=== PATIENT | male | born 1970 | race Caucasian/White ===

== ENCOUNTER → 2019-11-21 | Outpatient (CLI) | payer OTHER ==
[~2019-11-21] MED LIST: CATHETER FLUSH 10 ML SYR IV PRN; DARVOCET; EPIN0.3P2 IM; FEXO180T PO; MNTL10T; MOTRIM; MULT-608 PO; WRF5T; [UNRECOGNIZED DRUG - OTHER]
--- NOTE | 2019-11-21 13:35 | Diagnostic Imaging Report ---
Indication: Right upper quadrant pain. Patient was injected with 5 mCi Tc 99 Choletec intravenously. After 60 minutes of imaging, the patient ingested Ensure for the purpose of quantifying gallbladder ejection fraction. There is prompt homogenous distribution of the radiopharmacy throughout the liver parenchyma, activity first seen in the gallbladder within 5 minutes time and within 20 minutes was spilling into the extrahepatic ducts and subsequently into the proximal small bowel. With gallbladder Ensure stimulation, the gallbladder ejection fraction of 42% was within normal limits for that modality of stimulation. Impression: Normal nuclear medicine hepatobiliary scan and fatty meal gallbladder stimulation. Dictated by: Dictated on workstation # [id number]
== END ==
LOC: CARD 12:45
PROVIDERS: ATTEND Surgery
DX: R10.11 Right upper quadrant pain (principal)
CPT/HCPCS: 78227; A9537

== ENCOUNTER 2019-12-05 05:36 | Outpatient (RCR) | payer OTHER ==
[~2019-12-05] VITALS: Ht 190 cm; Wt 107.2 kg
[~2019-12-05 05:36] MED LIST changes: -CATHETER FLUSH 10 ML SYR IV PRN; +MONT10TA21 PO
== END 2019-12-05 14:45 | disposition home or self-care (01) ==
LOC: PREOP 05:36
PROVIDERS: ATTEND Surgery
DX: Z01.812 Encounter for preprocedural laboratory examination (principal); Z20.828 Contact with and (suspected) exposure to other viral communicable diseases
CPT/HCPCS: 87635

== ENCOUNTER 2019-12-07 07:30 | Day surgery (SDC) | payer OTHER ==
[~2019-12-07] VITALS: Ht 190 cm; Wt 107.2 kg
[2019-12-07] VITALS (10 sets, daily range): BP systolic 133–162; BP diastolic 76–97
[2019-12-07] MEDS: LACTATED RINGERS 1,000 ML IV PRN ×2 (07:56→10:09)
[2019-12-07] MEDS ORDERED: fentaNYL INJECTION 100 MCG/2 ML AMP ONE ×2 (07:57→10:24)
[2019-12-07] MEDS ORDERED: ONDANSETRON 4 MG/2 ML (SDV) Z0FRAN ONE ×2 (07:57→10:20)
[2019-12-07] MEDS ORDERED: MIDAZOLAM 2 MG/2 ML (VERSED) VIAL ONE (07:57)
[2019-12-07] MEDS ORDERED: LIDOCAINE PF 2% 5 ML (XYLOCAINE) VIAL ONE (07:57)
[2019-12-07] MEDS ORDERED: SEVOFLURANE (ULTANE) 15 ML INHAL SOLN ONE ×4 (07:57→09:50)
[2019-12-07] MEDS ORDERED: proPOfol 200 MG/20 ML (DIPRIVAN) VIAL IV ONE (07:57)
[2019-12-07] MEDS ORDERED: CLINDAMYCIN 600 MG/50 ML IVPB 50 ML IV ONE (08:00)
[2019-12-07] MEDS ORDERED: ceFAZolin 2 GM IV Premixed 50 ML IV ONE (08:00)
[2019-12-07 08:15] LABS: BASOPHILS % (AUTO) 0 % (0-10); EOSINOPHILS # (AUTO) 0.1 10^3/uL (0.0-0.3); EOSINOPHILS % (AUTO) 2 % (0-10); HEMATOCRIT 45 % (40-54); HEMOGLOBIN 15.4 g/dL (13.3-17.7); LYMPHOCYTES # (AUTO) 1.6 10^3/uL (1.0-4.0); LYMPHOCYTES % (AUTO) 32 % (12-44); MEAN CORPUSCULAR HEMOGLOBIN 30 pg (25-34); MEAN CORPUSCULAR HGB CONC 34 g/dL (32-36); MEAN CORPUSCULAR VOLUME 89 fL (80-99); MEAN PLATELET VOLUME 8.2 fL (9.0-12.2); MONOCYTES # (AUTO) 0.4 10^3/uL (0.0-1.0); MONOCYTES % (AUTO) 8 % (0-12); NEUTROPHILS # (AUTO) 2.9 10^3/uL (1.8-7.8); NEUTROPHILS % (AUTO) 58 % (42-75); PLATELET COUNT 243 10^3/uL (130-400)
[2019-12-07] MEDS ORDERED: IOPAMIDOL 61% 30 ML (ISOVUE 300) VIAL ONE (08:17)
[2019-12-07] MEDS ORDERED: BUP/EPI 0.5% 1:200,000 (SENSORCAINE) 30 ML VIAL ONE (08:17)
--- NOTE | 2019-12-07 08:18 | Progress Note-Pre Operative ---
Pre-Operative Progress Note H&P Reviewed The H&P was reviewed, patient examined and no changes noted. Time Seen by Provider: 08:13 Date H&P Reviewed: Dec 07, 2019 Time H&P Reviewed: 08:14 Pre-Operative Diagnosis: biliary dyskinesia JONATHAN WAITE DO Dec 07, 2019 08:18
[2019-12-07] MEDS ORDERED: PANT20TA2 PO (08:27)
[2019-12-07] MEDS ORDERED: HYDROmorphone 2 MG/ML VIAL (DILAUDID) ONE ×2 (09:34→10:20)
--- NOTE | 2019-12-07 10:04 | Progress Note-Post Operative ---
Post-Operative Progess Note Surgeon (s)/Supervisor Hard Candy (s) Surgeon JONATHAN WAITE DO Supervisor Hard Candy: Noble Pre-Operative Diagnosis biliary dyskinesia Post-Operative Diagnosis same Procedure & Operative Findings Date of Procedure 12/07/19 Procedure Performed/Findings PROCEDURE: Laparoscopic cholecystectomy with intraoperative cholangiogram. COMPLICATIONS: None. PROCEDURE: The patient was taken to the operating suite and was prepped and draped in sterile fashion. A surgical pause was performed. Just superior to the umbilicus, a 12 mm incision was made. Dissection was taken down to the fascia, which was then scored and grasped with a Rita and the abdomen was then entered. A 0 Vicryl suture was placed in a vnlofq-[id number] fashion and a Salazar trocar was placed and secured. Pneumoperitoneum was achieved. A 5mm trochar place in the subxyphoid and 2 in the right upper quadrant. The gallbladder was then grasped and elevated. The cystic duct, and cystic artery were then dissected out. Clip was placed on the distal portion of the cystic duct which was then partially transected. An arrow catheter was inserted into the duct. The cholangiogram was then performed. No filing defects and contrast made its way into the duodenum. Catheter removed. Clips were placed on proximal portion of the cystic duct and then the duct was then transected. Clips were placed along the proximal and distal portion of the cystic artery which was then transected. Hook cautery was used to dissect the gallbladder from the gallbladder fossa achieving hemostasis. The gallbladder was placed in an Endobag and removed through the 12 mm trocar site. The abdomen was then reinspected. Copious amounts of irrigation were used to irrigate the abdomen and there were no signs of active bleeding. Hemostasis had been achieved. The 12 mm fascial defect was then closed with 0 Vicryl suture that had been placed in a ctlhkk-md-wkrgg fashion. The abdomen was then desufflated, the trocars were removed. The abdomen was then washed and dried. The skin was then closed using 4-0 Monocryl in a subcuticular fashion. The abdomen was washed and dried and Skin Affix was place over incisions. Patient tolerated the procedure well without any complications and was taken to the recovery room in stable condition. Anesthesia Type GET Estimated Blood Loss Estimated blood loss (mL): scant Specimens/Packing Specimens Removed GB and contents JONATHAN WAITE DO Dec 07, 2019 10:04
[2019-12-07] MEDS ORDERED: HYDR-4226 PO (10:05)
--- NOTE | 2019-12-07 10:05 | Discharge Inst-Surgical ---
Discharge Inst-Surgical Depart Medication/Instructions New, Converted or Re-Newed RX: RX Given to Pt/Family Patient Instructions Follow up Appt: Make appointment for 1 week. [phone] Instructions: No lifting greater than 20 pounds. No strenuous activity. May shower in 24 hours, no tub bath or soaking. Use incentive spirometer at home as directed. No Smoking Skin/Wound Care: May remove bandages in am. You need to leave the Dermabond on incision it will fall off on it's own. Symptoms to Report: Appetite Changes, Extremity Discoloration, Numbness/Tingling, Swelling Increased, Bleeding Excessive, Eyesight Changes, Pain Increased, Urine Color Change, Constipation(Persistent), Fever over 101 degree F, Pain/Pressure in chest, Urinating Difficulty, Cough Up/Vomit Blood, Heart Beat Irreg/Pounding, Pain/Pressure in jaw, Cramps in feet or legs, Lightheadedness, Pain/Pressure in shoulder, Diarrhea(Persistent), Memory Changes Suddenly, Questions/Concerns, Weight gain consecutive days, Dizziness/Fainting, Nausea/Vomiting, Shortness of Breath, Weight gain over 2 pounds If questions or concerns contact your physician Or seek help at emergency department. Activity Activity as Tolerated: Yes Activity Instructions: Avoid Stress to Incision Driving Instructions: No Driving/Refer to Diet Discharge Diet: Avoid Fatty Foods, Low Fat/Low Cholesterol Diet After 24 Hours: Clear Liquid if Nauseous If Any Problems/Questions/Issu: Contact Your Physician, Go to Emergency Room Skin/Wound Care Infection Signs and Symptoms: Increased Redness, Foul Odor of Wound, Increased Drainage, Skin Itchy or Has a Rash, Increased Swelling, Temperature Above 101 F Bathing Instructions: Shower Stitches/[place]/Dermabond Dis: Dermabond Ice Pack: Ice On and Off Site JONATHAN WAITE DO Dec 07, 2019 10:05
[2019-12-07] MEDS ORDERED: KETOROLAC 30 MG/ML VIAL ONE (10:10)
[2019-12-07] MEDS ORDERED: ONDANSETRON 4 MG/2 ML (SDV) Z0FRAN IVP PRN (10:15)
[2019-12-07] MEDS ORDERED: HYDROmorphone 2 MG/ML VIAL (DILAUDID) IV ONE (10:15)
--- NOTE | 2019-12-07 10:59 | Anesthesia-General Post-Op ---
General Patient Condition Mental Status/LOC: Same as Preop Cardiovascular: Satisfactory Nausea/Vomiting: Absent Respiratory: Satisfactory Pain: Controlled Complications: Absent Post Op Complications Complications None Follow Up Care/Instructions Patient Instructions None needed. Anesthesia/Patient Condition Patient Condition Patient is doing well, no complaints, stable vital signs, no apparent adverse anesthesia problems. No complications reported per nursing. D/C home per [facility] Criteria: Yes FANNY JOE CRNA Dec 07, 2019 10:59
--- NOTE | 2019-12-07 11:02 | Diagnostic Imaging Report ---
INDICATION: Fluoroscopy during intraoperative cholangiogram. Fluoroscopy was provided in the OR during intraoperative cholangiogram. 7 seconds of fluoroscopic time was utilized. Images demonstrate contrast being injected via the cystic duct remnant. Intrahepatic and extrahepatic bile ducts are normal caliber. No filling defects are seen to suggest retained stone. Contrast passes into the duodenum. IMPRESSION: Fluoroscopy during intraoperative cholangiogram. Dictated by: Dictated on workstation # [id number]
[2019-12-07] MEDS ORDERED: HYDROcodone/APAP 5 MG/325 MG (LORTAB) TAB ONE (11:08)
[2019-12-07] MEDS ORDERED: HYDROcodone/APAP 5 MG/325 MG (LORTAB) TAB PO ONE (11:15)
== END 2019-12-07 12:20 | disposition home or self-care (01) ==
LOC: SDC 07:30
PROVIDERS: ATTEND Surgery
DX: K81.1 Chronic cholecystitis (principal); K82.8 Other specified diseases of gallbladder; M06.9 Rheumatoid arthritis, unspecified; Z88.0 Allergy status to penicillin; Z91.012 Allergy to eggs; Z87.891 Personal history of nicotine dependence; Z86.718 Personal history of other venous thrombosis and embolism; Z79.899 Other long term (current) drug therapy; Z11.2 Encounter for screening for other bacterial diseases
CPT/HCPCS: 36415; 76000; 85025; 87081; 88304; 94664

== ENCOUNTER 2020-10-03 22:39 | Emergency (ER) | payer OTHER ==
[~2020-10-03] VITALS: Ht 190.5 cm; Wt 180.0 kg
[~2020-10-03 22:39] MED LIST changes: +HYDR-4226 PO; +PANT20TA2 PO
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
[2020-10-03] MEDS ORDERED: NS IV 1000 ML 1,000 ML IV SCH (23:00)
[2020-10-03 23:16] LABS: BASOPHILS % (AUTO) 0 % (0-10); EOSINOPHILS # (AUTO) 0.4 10^3/uL (0.0-0.3); EOSINOPHILS % (AUTO) 4 % (0-10); HEMATOCRIT 45 % (40-54); HEMOGLOBIN 14.9 g/dL (13.3-17.7); LYMPHOCYTES # (AUTO) 3.2 10^3/uL (1.0-4.0); LYMPHOCYTES % (AUTO) 38 % (12-44); MEAN CORPUSCULAR HEMOGLOBIN 30 pg (25-34); MEAN CORPUSCULAR HGB CONC 33 g/dL (32-36); MEAN CORPUSCULAR VOLUME 90 fL (80-99); MEAN PLATELET VOLUME 8.6 fL (9.0-12.2); MONOCYTES # (AUTO) 0.7 10^3/uL (0.0-1.0); MONOCYTES % (AUTO) 9 % (0-12); NEUTROPHILS # (AUTO) 4.1 10^3/uL (1.8-7.8); NEUTROPHILS % (AUTO) 48 % (42-75); PLATELET COUNT 294 10^3/uL (130-400); WHITE BLOOD COUNT 8.5 10^3/uL (4.3-11.0)
[2020-10-03 23:23] LABS: PROTHROMBIN TIME PATIENT 13.7 SEC (12.2-14.7)
[2020-10-03 23:30] LABS: ALBUMIN 4.2 GM/DL (3.2-4.5); BILIRUBIN,TOTAL 0.9 MG/DL (0.1-1.0); CREATININE SERUM 1.01 MG/DL (0.60-1.30); POTASSIUM 3.5 MMOL/L (3.6-5.0); TOTAL PROTEIN 7.2 GM/DL (6.4-8.2)
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
[2020-10-04] MEDS ORDERED: ONDANSETRON 4 MG/2 ML (SDV) Z0FRAN IVP ONE ×2 (00:45→03:00)
[2020-10-04] MEDS ORDERED: fentaNYL INJ 100 MCG/2 ML AMP IVP ONE ×2 (00:45→02:30)
[2020-10-04] MEDS ORDERED: IOHEXOL 350 MG/ML 100 ML (OMNIPAQUE 350) VIAL IV ONE (02:00)
[2020-10-04] MEDS ORDERED: HOLD METFORMIN - RECEIVED CONTRAST 20 ML VIAL IV SCH (02:00)
[2020-10-04] MEDS ORDERED: NS 100 ML (IVPB) BAG IV ONE (02:00)
[2020-10-04 02:20] LABS: AMPHETAMINE SCREEN, URINE NEGATIVE (NEGATIVE); BARBITURATE SCREEN URINE NEGATIVE (NEGATIVE); BENZODIAZEPINES SCREEN URINE NEGATIVE (NEGATIVE); CANNABINOID SCREEN, URINE NEGATIVE (NEGATIVE); COCAINE SCREEN URINE NEGATIVE (NEGATIVE); METHADONE STAT NEGATIVE (NEGATIVE); METHAMPHETAMINE SCREEN URINE S NEGATIVE (NEGATIVE); OPIATE SCREEN URINE NEGATIVE (NEGATIVE); OXYCODONE STAT NEGATIVE (NEGATIVE); PROPOXYPHENE STAT NEGATIVE (NEGATIVE); TRICYCLIC ANTIDEPRESSANTS SCRE NEGATIVE (NEGATIVE)
[2020-10-04] MEDS ORDERED: NS IV 1000 ML 1,000 ML IV SCH (02:30)
[2020-10-04] MEDS ORDERED: ONDANSETRON 4 MG/2 ML (SDV) Z0FRAN ONE (02:47)
[2020-10-04 04:27] VITALS: BP 131/81
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
--- NOTE | 2020-10-04 08:09 | Diagnostic Imaging Report ---
EXAMINATION: CT angiography head with and without contrast. TECHNIQUE: After intravenous administration of contrast, thin section axial CT angiography of the head was performed. Source data was reformatted into 3D MIP projections. All CT scans use one or more of the following dose optimizing techniques: automated exposure control, MA and/or KvP adjustment based on a patient size and exam type, or iterative reconstruction. Any measurements of internal carotid artery stenosis are provided according to NASCET criteria. HISTORY: Subarachnoid hemorrhage, evaluate for aneurysm COMPARISON: None available. FINDINGS: Intracranial internal carotid arteries are normal. The middle cerebral arteries are normal. The posterior cerebral arteries are normal. The anterior cerebral arteries are normal. There is no large vessel occlusion. No aneurysm or vascular malformation is seen. The weston-white matter differentiation is normal. No mass effect or midline shift. The ventricles are normal in size and configuration. Basilar cisterns are patent. There are no intra- or extra-axial fluid collections. Subarachnoid hemorrhage in the left sylvian fissure in the inferior left frontal lobe is again seen. The orbits are normal. There is sphenoid sinus fluid. Mastoid air cells are clear. No soft tissue abnormality is seen. No osseus lesions or fractures are seen. IMPRESSION: 1. No evidence of aneurysm or vascular malformation. 2. Stable subarachnoid hemorrhage. There is no significant disagreement with the preliminary report. Dictated by: Dictated on workstation # [id number]
== END 2020-10-04 04:27 | disposition short-term general hospital (02) ==
LOC: EDUNIT# 22:39 → ER 22:40
DX: S02.609A Fracture of mandible, unspecified, initial encounter for closed fracture (principal); S06.6X0A Traumatic subarachnoid hemorrhage without loss of consciousness, initial encounter; H72.91 Unspecified perforation of tympanic membrane, right ear; H11.32 Conjunctival hemorrhage, left eye; Y04.8XXA Assault by other bodily force, initial encounter
CPT/HCPCS: 70450; 70486; 70496; 71045; 72125; 80053; 80306; 85025; 85610; 85730; 93005; 99285; G0480; 36415; 80320; 96361; 96374; 96375; 96376

== ENCOUNTER 2020-10-09 12:59 | Outpatient (CLI) | payer OTHER ==
[~2020-10-09] VITALS: Ht 190.5 cm; Wt 109.1 kg
== END 2020-10-09 16:00 | disposition home or self-care (01) ==
LOC: PREOP 12:59
PROVIDERS: ATTEND Specialist
DX: Z01.818 Encounter for other preprocedural examination (principal)

== ENCOUNTER → 2020-10-10 | Outpatient (CLI) | payer OTHER ==
[~2020-10-10] MED LIST changes: +ACHD5005 PO; +ONDA4TAB11 PO
== END ==
LOC: LABNPT 06:45
PROVIDERS: ATTEND Specialist
DX: S42.452A Displaced fracture of lateral condyle of left humerus, initial encounter for closed fracture (principal); Z20.822 Contact with and (suspected) exposure to COVID-19; X58.XXXA Exposure to other specified factors, initial encounter
CPT/HCPCS: 87636

== ENCOUNTER 2020-10-11 10:06 | Day surgery (SDC) | payer OTHER ==
[2020-10-11] VITALS (11 sets, daily range): BP systolic 131–179; BP diastolic 66–107
[~2020-10-11] VITALS: Ht 190 cm; Wt 109.1 kg
[~2020-10-11 10:06] MED LIST changes: -ACHD5005 PO; -ONDA4TAB11 PO
[2020-10-11] MEDS ORDERED: ACHD5005 PO ×2 (12:00→16:30)
[2020-10-11] MEDS ORDERED: CLINDAMYCIN 600 MG/50 ML IVPB 50 ML IV ONE ×2 (12:00→12:34)
[2020-10-11] MEDS: LACTATED RINGERS 1,000 ML IV PRN ×2 (12:32→15:45)
[2020-10-11] MEDS ORDERED: NEOSTIGMINE 3 MG/3 ML VIAL ONE (13:06)
[2020-10-11] MEDS ORDERED: LIDOCAINE PF 2% 5 ML (XYLOCAINE) VIAL ONE (13:06)
[2020-10-11] MEDS ORDERED: proPOfol 200 MG/20 ML (DIPRIVAN) VIAL IV ONE (13:06)
[2020-10-11] MEDS ORDERED: ROCURONIUM 10 MG/ML 5 ML SYRINGE IV ONE (13:06)
[2020-10-11] MEDS ORDERED: ONDANSETRON 4 MG/2 ML (SDV) Z0FRAN ONE ×2 (13:06→15:22)
[2020-10-11] MEDS ORDERED: GLYCOPYRROLATE 0.2 MG/ML (ROBINUL) 2 ML VIAL ONE (13:06)
[2020-10-11] MEDS ORDERED: MIDAZOLAM 2 MG/2 ML (VERSED) VIAL ONE (13:07)
[2020-10-11] MEDS ORDERED: fentaNYL INJ 100 MCG/2 ML AMP ONE (13:07)
[2020-10-11] MEDS ORDERED: PHENYLEPHRINE 0.25% NASAL SPR (NEO-SYNEPHRINE) 15 ML NS ONE (13:19)
[2020-10-11] MEDS ORDERED: LIDOCAINE/EPI 2% 1:100,00 (XYLOCAINE) 20 ML VIAL ONE (13:22)
[2020-10-11] MEDS ORDERED: ROPIVACAINE 5MG/ML 30ML VIAL ONE (13:23)
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
[2020-10-11] MEDS ORDERED: HYDROcodone/APAP 7.5MG-325 MG/15 ML (LORTAB) UDC PO PRN (13:30)
[2020-10-11] MEDS ORDERED: ceFAZolin INJECTION 1,000 MG in WATER (STERILE) FOR INJECTION 10 ML IV SCH (14:00)
[2020-10-11] MEDS ORDERED: SEVOFLURANE (ULTANE) 15 ML INHAL SOLN ONE (14:53)
--- NOTE | 2020-10-11 15:12 | Anesthesia-General Post-Op ---
General Patient Condition Mental Status/LOC: Same as Preop Cardiovascular: Satisfactory Nausea/Vomiting: Absent Respiratory: Satisfactory Pain: Controlled Complications: Absent Post Op Complications Complications None Follow Up Care/Instructions Patient Instructions None needed. Anesthesia/Patient Condition Patient Condition Patient is doing well, no complaints, stable vital signs, no apparent adverse anesthesia problems. SHANI STEVE DO Oct 11, 2020 15:12
--- NOTE | 2020-10-11 15:13 | Progress Note-Post Operative ---
Post-Operative Progess Note Surgeon (s)/Supervisor Filtration (s) Surgeon SHAWN PITTMAN DDS Supervisor Filtration: Melvi Patrick Pre-Operative Diagnosis left subcondylar fx Post-Operative Diagnosis same Procedure & Operative Findings Date of Procedure 10/11/20 Procedure Performed/Findings closed reduction left subcondylar fx Anesthesia Type geta Estimated Blood Loss Estimated blood loss (mL): minimal Specimens/Packing Specimens Removed none Packing: none SHAWN PITTMAN DDS Oct 11, 2020 15:13
[2020-10-11] MEDS ORDERED: morphine INJ 10 MG/ML 1ML (SYR OR VIAL) IVP ONE (15:15)
[2020-10-11] MEDS ORDERED: ONDANSETRON 4 MG/2 ML (SDV) Z0FRAN IVP PRN (15:15)
[2020-10-11] MEDS ORDERED: morphine INJ 10 MG/ML 1ML (SYR OR VIAL) ONE (15:22)
[2020-10-11] MEDS ORDERED: ONDA4TAB11 PO (16:30)
--- NOTE | 2020-10-16 08:53 | Progress Note ---
Standard Progress Note Progress Notes/Assess & Plan Date Seen by a Provider: Oct 11, 2020 Time Seen by a Provider: 15:09 Progress/Assessment & Plan Addendum to Anesthesia Record: Procedure: Closed Reduction Left Subcondylar Fracture Anesthesia End Time should read: 1509 SHANI STEVE DO Oct 16, 2020 08:53
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
== END 2020-10-11 17:20 ==
LOC: SDC 10:06
PROVIDERS: ATTEND Specialist
DX: S02.622A Fracture of subcondylar process of left mandible, initial encounter for closed fracture (principal); M19.90 Unspecified osteoarthritis, unspecified site
CPT/HCPCS: 87081

== ENCOUNTER → 2020-10-11 | Outpatient (CLI) | payer OTHER ==
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
== END ==
LOC: RAD 10:29
PROVIDERS: ATTEND Anesthesiology
DX: Z01.818 Encounter for other preprocedural examination (principal); S06.309A Unspecified focal traumatic brain injury with loss of consciousness of unspecified duration, initial encounter; X58.XXXA Exposure to other specified factors, initial encounter; Z87.820 Personal history of traumatic brain injury
CPT/HCPCS: 70450

== ENCOUNTER → 2020-10-30 | Outpatient (CLI) | payer OTHER ==
[~2020-10-30] MED LIST changes: +ACHD5005 PO; +ONDA4TAB11 PO
--- NOTE | 2020-10-30 09:27 | Diagnostic Imaging Report ---
INDICATION: Injury to head, fracture follow-up. TECHNIQUE: Multiple contiguous axial images were obtained through the brain without the use of intravenous contrast. Auto Exposure Controls were utilized during the CT exam to meet ALARA standards for radiation dose reduction. Comparison made to prior study of 10/11/2020. There are no subdural or epidural collections. There is encephalomalacia in the left frontal lobe at the site of previous parenchymal hemorrhage. Previous hemorrhage has resolved with no new intracranial hemorrhage at this time. The ventricles are normal in size. There is no new intraparenchymal abnormality in the brain seen elsewhere. Patient's right temporal calvarial fracture again noted passing through the right mastoid air cells. The opacity in the right middle ear cavity compatible with blood, has resolved. IMPRESSION: Resolution of intracranial hemorrhage compared to the prior study, in the left frontal region. There is some residual left frontal encephalomalacia. There is no new hemorrhage seen. Right temporal calvarial fracture again noted passing through the right mastoid air cells. There is improvement in the previously noted opacification of the right middle ear cavity. Dictated by: Dictated on workstation # [id number]
== END ==
LOC: RAD 08:31
PROVIDERS: ATTEND Otolaryngology Otolaryngology/Facial Plastic Surgery
DX: S02.81XD Fracture of other specified skull and facial bones, right side, subsequent encounter for fracture with routine healing (principal); X58.XXXD Exposure to other specified factors, subsequent encounter
CPT/HCPCS: 70450

== ENCOUNTER → 2020-11-06 | Outpatient (CLI) | payer OTHER ==
--- NOTE | 2020-11-06 14:30 | Diagnostic Imaging Report ---
INDICATION: Cervical pain. Patient had recent trauma to the head and face. Patient was administered 25.7 mCi technetium 99m MDP intravenously and whole-body imaging was performed after 3 hour delay. No prior bone scans are available for comparison. There is normal uptake of activity by the axial and appendicular skeleton. There is uptake by the kidneys with excretion into the urinary bladder. There is a small focus of uptake in the left maxilla, nonspecific. There is some uptake in the left mandible region as well. Patient reportedly has a known mandibular fracture. No other suspicious foci are identified. There are no bone scan findings to suggest osseous metastatic disease. IMPRESSION: There is uptake in the region of the left maxilla and left mandible. Left mandibular uptake corresponds to a left mandibular fracture. No other significant abnormality is seen. Dictated by: Dictated on workstation # [id number]
== END ==
LOC: CARD 11:00
PROVIDERS: ATTEND Neurological Surgery
DX: S09.90XA Unspecified injury of head, initial encounter (principal); M54.2 Cervicalgia; X58.XXXA Exposure to other specified factors, initial encounter
CPT/HCPCS: 78306; A9503

== ENCOUNTER 2021-08-19 21:07 | Emergency (ER) | payer OTHER ==
[~2021-08-19] VITALS: Ht 190 cm; Wt 108.0 kg
--- NOTE | 2021-08-19 21:55 | ED Integumentary General ---
General Chief Complaint: Skin/Wound Problems Stated Complaint: POST OP WOUND DRAINAGE R SHOULDER Nursing Triage Note: PATIENT STATES STITCHES REMOVED FROM CANCEROUS AREA TODAY, STERI STRIPS PLACED LEFT SHOULDER. PATIENT VERBALIZED THIS EVENING AFTER SHOWER WITH DRESSING CHANGE PATIENT NOTED STERISTRIPS "BROKE" AND WOUND IS GAPING OPEN. PAIN. Source: patient, family () Exam Limitations: no limitations History of Present Illness Date Seen by Provider: Aug 19, 2021 Time Seen by Provider: 21:45 Initial Comments Patient is a 50-year-old male who presents to the emergency department today with a chief complaint of right lateral shoulder pain in the area where he had skin cancer removed about 2 weeks ago. Patient was seen at the surgeon's clinic this morning and had sutures removed. He was getting ready to take a shower this evening when the center of the surgical wound split wide open. Patient has increased pain especially when it is exposed to air. No reported fevers or chills. According to the patient the surgeon stated that the wound looked good and the sutures were able to be removed this morning. attempted to get a hold of the surgeon this evening but was unable to. Timing/Duration: just prior to arrival Severity: severe Location: extremities (right shoulder) Associated Symptoms: denies symptoms Allergies and Home Medications Allergies Coded Allergies: Penicillins (Verified Allergy, Severe, ANAPHYLAXIS, 10/11/20) egg (Verified Allergy, Severe, ANAPHYLAXIS, 10/11/20) Patient Home Medication List Home Medication List Reviewed: Yes Hydrocodone/Acetaminophen (Hydrocodone-Acetamin 5-325 mg) 1 Each Tablet, 1 TAB PO Q4H PRN for PAIN-MODERATE (5-7), (Reported) Entered as Reported by: MORE PRASAD on 10/11/20 1200 Hydrocodone/Acetaminophen (Hydrocodone-Acetamin 5-325 mg) 1 Each Tablet, 1 TAB PO Q4H PRN for PAIN-MODERATE (5-7) Prescribed by: MORE PRASAD on 10/11/20 1630 Ondansetron (Ondansetron Odt) 4 Mg Tab.rapdis, 4 MG PO Q4H PRN for NAUSEA-1ST LINE Prescribed by: MORE PRASAD on 10/11/20 1630 Review of Systems Review of Systems Constitutional: see HPI EENTM: no symptoms reported Respiratory: no symptoms reported Cardiovascular: no symptoms reported Gastrointestinal: no symptoms reported Musculoskeletal: joint pain (right shoulder) Skin: other (wound "opened") All Other Systems Reviewed Negative Unless Noted: Yes Past Wedzjml-Nwqbsn-Ffffol Hx Immunizations Up To Date First/Initial COVID19 Vaccinat: PT REFUSES Second COVID19 Vaccination Eze: PT REFUSES Third COVID19 Vaccination Date: PT REFUSES Seasonal Allergies Seasonal Allergies: Yes (GETS ALLERGY SHOTS) Past Medical History Surgery/Hospitalization HX: APPENDECTOMY Surgeries: Yes (KNEE SURGERY X7, WISDOM TEETH) Appendectomy Respiratory: No Cardiac: Yes (AFTER KNEE SURGERY) Deep Vein Thrombosis Neurological: No Reproductive Disorders: No Sexually Transmitted Disease: No HIV/AIDS: No Genitourinary: No Gastrointestinal: Yes Ulcer, Gall Bladder Disease Musculoskeletal: Yes Arthritis Endocrine: No HEENT: No Loss of Vision: Denies Hearing Impairment: Denies Cancer: No Psychosocial: No Integumentary: No Blood Disorders: Yes (HX DVT) Adverse Reaction/Blood Tranf: No (N/A) Physical Exam Vital Signs Vital Signs - First Documented 08/19/21 21:43 Temp 36.9 Pulse 94 Resp 20 B/P (MAP) 136/81 (99) Pulse Ox 94 O2 Delivery Room Air Capillary Refill : Less Than 3 Seconds General Appearance: WD/WN, no apparent distress Cardiovascular: regular rate, rhythm Respiratory: no respiratory distress, no accessory muscle use Extremities: other (decreased ROM right shoulder; distal NVI) Neurologic/Psychiatric: alert, normal mood/affect, oriented x 3 Skin: normal color, warm/dry, other (Patient has a large ellipse shaped wound to the right lateral shoulder. There was an incision down the middle of the ellipse that has dehisced approximately 2 cm. The wound is approximately 1 to 1/2 cm deep. No active bleeding. Necrotic subcutaneous fat is noted. Muscle fascia is noted. No obvious muscle belly exposed. Wound was dressed with saline soaked gauze and dry 4 x 4's) Progress/Results/Core Measures Results/Orders Vital Signs/I&O 08/19/21 21:43 Temp 36.9 Pulse 94 Resp 20 B/P (MAP) 136/81 (99) Pulse Ox 94 O2 Delivery Room Air Blood Pressure Mean: 99 Progress Progress Note : Time: 22:19 Progress Note Discussed with Dr. Oreilly at [place], he recommends wet-to-dry dressings and he will see him in 1 week. No prophylactic antibiotics indicated. Departure Impression Primary Impression: Wound dehiscence, surgical Qualified Codes: T81.31XA - Disruption of external operation (surgical) wound, not elsewhere classified, initial encounter Disposition: 01 HOME, SELF-CARE Condition: Stable Departure-Patient Inst. Decision time for Depature: 21:53 Referrals: JULIETTE GREWAL DO (PCP/Family) Primary Care Physician Patient Instructions: Wound Dehiscence (DC) Add. Discharge Instructions: Call Dr. Oreilly's office in the morning for a follow-up appointment in 1 week. You need to do wet-to-dry dressings as placed this evening in the emergency department twice daily. You can wash the wound gently with soap and water. Return to the emergency room for foul-smelling drainage, increased redness or swelling, fever or any other emergent concerning symptoms. ARNOLDO BOJORQUEZ MD Aug 19, 2021 21:55
[2021-08-19 22:46] VITALS: BP 136/81
== END 2021-08-19 22:46 | disposition home or self-care (01) ==
LOC: EDUNIT# 21:07 → ER 21:10
DX: T81.32XA Disruption of internal operation (surgical) wound, not elsewhere classified, initial encounter (principal); Z28.310 Unvaccinated for COVID-19
CPT/HCPCS: 99281

== ENCOUNTER → 2021-08-20 | Outpatient (CLI) | payer OTHER ==
[2021-08-20 11:41] LABS: BASOPHILS % (AUTO) 0 % (0-10); EOSINOPHILS # (AUTO) 0.2 10^3/uL (0.0-0.3); EOSINOPHILS % (AUTO) 3 % (0-10); HEMATOCRIT 46 % (40-54); HEMOGLOBIN 15.7 g/dL (13.3-17.7); LYMPHOCYTES # (AUTO) 1.8 10^3/uL (1.0-4.0); LYMPHOCYTES % (AUTO) 25 % (12-44); MEAN CORPUSCULAR HEMOGLOBIN 31 pg (25-34); MEAN CORPUSCULAR HGB CONC 34 g/dL (32-36); MEAN CORPUSCULAR VOLUME 90 fL (80-99); MEAN PLATELET VOLUME 8.4 fL (9.0-12.2); MONOCYTES # (AUTO) 0.6 10^3/uL (0.0-1.0); MONOCYTES % (AUTO) 8 % (0-12); NEUTROPHILS # (AUTO) 4.3 10^3/uL (1.8-7.8); NEUTROPHILS % (AUTO) 63 % (42-75); PLATELET COUNT 241 10^3/uL (130-400); WHITE BLOOD COUNT 6.9 10^3/uL (4.3-11.0)
[2021-08-20 11:47] LABS: ALBUMIN 4.3 GM/DL (3.2-4.5); POTASSIUM 4.5 MMOL/L (3.6-5.0)
[2021-08-20 11:48] LABS: CALCIUM 9.3 MG/DL (8.5-10.1)
[2021-08-20 11:49] LABS: TOTAL PROTEIN 7.1 GM/DL (6.4-8.2)
[2021-08-20 11:51] LABS: BILIRUBIN,TOTAL 1.7 MG/DL (0.1-1.0)
[2021-08-20 11:53] LABS: CREATININE SERUM 0.95 MG/DL (0.60-1.30)
== END ==
LOC: LAB 11:10
PROVIDERS: ATTEND Family Medicine
DX: T81.31XA Disruption of external operation (surgical) wound, not elsewhere classified, initial encounter (principal); C43.61 Malignant melanoma of right upper limb, including shoulder; T86.821 Skin graft (allograft) (autograft) failure
CPT/HCPCS: 36415; 80053; 85025

== ENCOUNTER → 2021-08-20 | Outpatient (CLI) | payer OTHER | LOC: WOUNDCARE 09:43 | PROVIDERS: ATTEND Family Medicine | DX: T81.31XA Disruption of external operation (surgical) wound, not elsewhere classified, initial encounter (principal); C43.61 Malignant melanoma of right upper limb, including shoulder; T86.821 Skin graft (allograft) (autograft) failure | CPT/HCPCS: 11042; 87070; 87205; A6260; G0463; 87077 ==

== ENCOUNTER → 2021-08-27 | Outpatient (CLI) | payer OTHER | LOC: WOUNDCARE 13:41 | PROVIDERS: ATTEND Family Medicine | DX: C43.61 Malignant melanoma of right upper limb, including shoulder (principal); T81.31XA Disruption of external operation (surgical) wound, not elsewhere classified, initial encounter; T86.821 Skin graft (allograft) (autograft) failure; A49.9 Bacterial infection, unspecified; I96 Gangrene, not elsewhere classified | CPT/HCPCS: 11042; 11045; G0463 ==

== ENCOUNTER → 2021-09-03 | Outpatient (CLI) | payer OTHER ==
[~2021-09-03] MED LIST changes: +CATHETER FLUSH 10 ML SYR IV PRN; +GADOTERATE 0.5 MMOL/ML (CLARISCAN) 20 ML VIAL IV ONE; +HOLD METFORMIN - RECEIVED CONTRAST 20 ML VIAL IV SCH; +IOHEXOL 350 MG/ML 100 ML (OMNIPAQUE 350) VIAL IV ONE; +NS 100 ML (IVPB) BAG IV ONE
--- NOTE | 2021-09-03 15:42 | Diagnostic Imaging Report ---
PROCEDURE: MR imaging of the brain with and without contrast. TECHNIQUE: Multiplanar, multisequence MR imaging of the brain was performed with and without contrast. INDICATION: Metastatic melanoma. COMPARISON: CT head without contrast from 10/30/2020. FINDINGS: Chronic encephalomalacia in the anterior left temporal lobe and inferior left frontal lobe. Mild nonspecific T2 hyperintensities in the supratentorial white matter, compatible with chronic small vessel ischemic change. No abnormal intracranial enhancement. No restricted water diffusion or hemosiderin deposition. Normal morphology including the major midline structures, sella, posterior fossa and cerebellopontine angle. Normal intracranial flow voids. No hydrocephalus or extra-axial fluid collections. The orbits are negative. Mild mucosal thickening in the floor of the maxillary sinuses. The mastoids are clear. Normal bone marrow signal. IMPRESSION: 1. No acute intracranial MRI findings. No evidence of acute infarction or hemorrhage. 2. Chronic encephalomalacia in the inferior left frontal and anterior left temporal lobes is stable. 3. Mild chronic small vessel ischemic change. Dictated by: Dictated on workstation # [id number]
--- NOTE | 2021-09-03 15:45 | Diagnostic Imaging Report ---
PROCEDURE: CT of the chest and pelvis with contrast and CT of the abdomen with and without contrast. TECHNIQUE: Precontrast acquisitions were acquired through the abdomen. Multiple contiguous axial images were obtained through the chest, abdomen and pelvis after administration of intravenous contrast. Auto Exposure Controls were utilized during the CT exam to meet ALARA standards for radiation dose reduction. INDICATION: History of melanoma with adenopathy in the right axilla. COMPARISON: I have no relevant comparison. FINDINGS: CHEST: There are presumed postsurgical changes of edema and a small amount of fluid in the right axilla or an ill-defined collection that measures 3.3 x 2.6 cm. This is presumed on a postoperative basis, but correlate with any recent surgery to the right axilla. No appreciable solid pathological-appearing nodes in either axilla. Internal mammary chains and remaining mediastinal lymph node stations are unremarkable. There is no hilar adenopathy. There is no lung mass or suspicious pulmonary nodule. No findings of edema or pneumonia. There is no pleural or pericardial effusion. The thoracic aorta is patent, nonaneurysmal, and nonacute. No suspicious lytic or sclerotic osseous lesion identified. ABDOMEN AND PELVIS: There is a cyst in the junction of the right and left hepatic lobes. No solid or suspicious liver mass. The gallbladder is surgically absent. No abnormal distention of the bile ducts. The spleen is negative. There is no adrenal mass. Pancreas is unremarkable. There is no abdominopelvic mesenteric or retroperitoneal lymphadenopathy. There is no bowel, biliary, or urinary tract obstruction. There is noninflamed sigmoid diverticulosis. There are a few small subcentimeter lymph nodes in the right groin, none of which appear pathologic. There is no suspect lytic or sclerotic bony lesion. There is no ascites, abscess, hematoma, or acute fluid collection. No inflammatory process. The urinary bladder is unremarkable. The aorta is nonaneurysmal. IMPRESSION: There are presumed postsurgical changes to the right axilla. No findings at this exam are suggestive of CT evidence for metastatic disease within the chest, abdomen, or pelvis. Dictated by: Dictated on workstation # [id number]
== END ==
LOC: RAD 13:16
PROVIDERS: ATTEND Internal Medicine Hematology & Oncology
DX: G93.89 Other specified disorders of brain (principal); I67.82 Cerebral ischemia; C43.9 Malignant melanoma of skin, unspecified; Z98.890 Other specified postprocedural states
CPT/HCPCS: 70553; 71260; 74178

== ENCOUNTER 2021-09-10 09:07 | Outpatient (RCR) | payer OTHER ==
[~2021-09-10] VITALS: Ht 190.5 cm; Wt 109.8 kg
[2021-09-10] MEDS ORDERED: PEMBROLIZUMAB 200 MG in NS (IVPB) 50 ML IV SCH (15:45)
[2021-09-10] MEDS ORDERED: NS IV 1000 ML (CANCER CTR) IV SCH (15:45)
[2021-09-10] MEDS ORDERED: HEParin (CENTRAL IV FLUSH) 500 UNIT/5 ML SYR IV PRN (15:45)
[2021-09-18] MEDS ORDERED: LEVO5TAB28 PO (13:31)
== END 2021-09-22 | disposition home or self-care (01) ==
LOC: ONC 09:07
PROVIDERS: ATTEND Internal Medicine Hematology & Oncology
DX: C49.9 Malignant neoplasm of connective and soft tissue, unspecified (principal)
CPT/HCPCS: 99213; 99214

== ENCOUNTER → 2021-09-10 | Outpatient (CLI) | payer OTHER ==
[~2021-09-10] MED LIST changes: -CATHETER FLUSH 10 ML SYR IV PRN; -GADOTERATE 0.5 MMOL/ML (CLARISCAN) 20 ML VIAL IV ONE; -HOLD METFORMIN - RECEIVED CONTRAST 20 ML VIAL IV SCH; -IOHEXOL 350 MG/ML 100 ML (OMNIPAQUE 350) VIAL IV ONE; -NS 100 ML (IVPB) BAG IV ONE
== END ==
LOC: WOUNDCARE 13:58
PROVIDERS: ATTEND Family Medicine
DX: T81.31XA Disruption of external operation (surgical) wound, not elsewhere classified, initial encounter (principal); C43.61 Malignant melanoma of right upper limb, including shoulder; T86.821 Skin graft (allograft) (autograft) failure; I96 Gangrene, not elsewhere classified
CPT/HCPCS: 11042; G0463

== ENCOUNTER → 2021-09-17 | Outpatient (CLI) | payer OTHER ==
[~2021-09-17] MED LIST changes: +LEVO5TAB28 PO
== END ==
LOC: WOUNDCARE 13:43
PROVIDERS: ATTEND Family Medicine
DX: T81.31XA Disruption of external operation (surgical) wound, not elsewhere classified, initial encounter (principal); C43.61 Malignant melanoma of right upper limb, including shoulder; T86.821 Skin graft (allograft) (autograft) failure; I96 Gangrene, not elsewhere classified
CPT/HCPCS: 11042; A6212; G0463

== ENCOUNTER 2021-09-18 07:16 | Outpatient (CLI) | payer OTHER ==
[~2021-09-18] VITALS: Ht 190 cm; Wt 110.0 kg
[~2021-09-18 07:16] MED LIST changes: -LEVO5TAB28 PO
[2021-09-18] MEDS ORDERED: LEVO5TAB28 PO (13:31)
== END 2021-09-18 13:53 ==
LOC: PREOP 07:16
PROVIDERS: ATTEND Surgery
DX: Z01.818 Encounter for other preprocedural examination (principal)

== ENCOUNTER 2021-09-20 07:52 | Day surgery (SDC) | payer OTHER ==
[~2021-09-20] VITALS: Ht 190.5 cm; Wt 110.0 kg
[2021-09-20] VITALS (8 sets, daily range): BP systolic 137–179; BP diastolic 93–109
[~2021-09-20 07:52] MED LIST changes: +LEVO5TAB28 PO
[2021-09-20] MEDS ORDERED: CLINDAMYCIN 600 MG/50 ML IVPB 50 ML IV ONE (08:45)
[2021-09-20] MEDS ORDERED: LACTATED RINGERS 1,000 ML IV PRN (08:45)
--- NOTE | 2021-09-20 08:56 | Progress Note-Pre Operative ---
Pre-Operative Progress Note Date of Available H&P: Sep 17, 2021 Date H&P Reviewed: Sep 20, 2021 Time H&P Reviewed: 08:48 History & Physical: H&P Reviewed, Patient Examed Pre-Operative Diagnosis: Melanoma, Venous Insufficiency JONATHAN WAITE DO Sep 20, 2021 08:56
[2021-09-20] MEDS ORDERED: LIDOCAINE/EPI 2% 1:200,00 (XYLOCAINE) 20 ML VIAL ONE (09:07)
[2021-09-20] MEDS ORDERED: WATER (STERILE) FOR INJECTION 20 ML ONE (09:07)
[2021-09-20] MEDS ORDERED: HEParin (CENTRAL IV FLUSH) 500 UNIT/5 ML SYR ONE (09:08)
[2021-09-20] MEDS ORDERED: 0.9% SODIUM CHLORIDE PF INJ 20 ML VIAL ONE (09:09)
[2021-09-20] MEDS ORDERED: PROPOFOL INJECTION 50 ML IV ONE (09:37)
[2021-09-20] MEDS ORDERED: MIDAZOLAM 2 MG/2 ML (VERSED) VIAL ONE (09:37)
--- NOTE | 2021-09-20 10:22 | Diagnostic Imaging Report ---
INDICATION: Central line placement IMPRESSION: 5.6 seconds of fluoroscopy and a single digital image was used in surgery by Dr. Velasquez for positioning and alignment during placement of a left subclavian Port-A-Cath. Dictated by: Dictated on workstation # [id number]
--- NOTE | 2021-09-20 10:28 | Anesthesia-General Post-Op ---
MAC Patient Condition Mental Status/LOC: Same as Preop Cardiovascular: Satisfactory Nausea/Vomiting: Absent Respiratory: Satisfactory Pain: Controlled Complications: Absent Post Op Complications Complications None Follow Up Care/Instructions Patient Instructions None needed. Anesthesiology Discharge Order Discharge Order Patient is doing well, no complaints, stable vital signs, no apparent adverse anesthesia problems. No complications reported per nursing. MELY BENITEZ CRNA Sep 20, 2021 10:28
[2021-09-20] MEDS ORDERED: ONDANSETRON 4 MG/2 ML (SDV) Z0FRAN IVP PRN (10:30)
--- NOTE | 2021-09-20 12:04 | Progress Note-Post Operative ---
Post-Operative Progess Note Surgeon (s)/Tawer (s) Surgeon JONATHAN WAITE DO Tawer: MICHAEL Green Pre-Operative Diagnosis Melanoma, Venous Insufficiency Post-Operative Diagnosis same Procedure & Operative Findings Date of Procedure 09/20/21 Procedure Performed/Findings PROCEDURE: Sindy-Cath placement The patient was taken to the operating suite, was prepped and draped in the sterile fashion. A surgical pause was performed. Local anesthetic was infiltrated at the clavicle and along the tract to the left anterior chest, where more local was placed so the pocket could be created. Using an 18 gauge finder needle with negative inspiration the left subclavian vein was accessed on the third attempt and dark nonpulsatile blood was withdrawn. The wire was inserted and fluoroscopy assured proper placement. The needle was removed. A #11 blade scalpel was used to make an incision over the right chest and along guidewire. Cautery was used to dissect down to the pectoral fascia. A pocket was created with blunt dissection. The dilator sheath was then advanced over the wire using the Seldinger technique checked position with fluoroscopy and the dilator and wire were removed. The Groshong catheter was inserted through the sheath and the sheath was then removed. The Groshong wire was removed. The catheter was then tunneled to the right chest pocket. Fluoroscopy was used to cut to length and this was then attached to the port which was then placed within the pocket. The port was then accessed without difficulty. It was then flushed with saline and then heparin. The subcutaneous tissues were then reapproximated using 3-0 Vicryl. Finally the skin was closed with 4-0 undyed monocryl, 3 interrupted sutures. The areas were then washed and dried. Skin Affix was placed over incision. The insertion point of the neck Skin Affix was placed over the incision. The patient tolerated the procedure well without complication and was taken to recovery room in stable condition. Anesthesia Type IV sedation by SEMICONDUCTOR DEVELOPMENT TECHNICIAN Estimated Blood Loss Estimated blood loss (mL): scant Specimens/Packing Specimens Removed none JONATHAN WATIE DO Sep 20, 2021 12:03
--- NOTE | 2021-09-20 12:05 | Discharge Inst-Surgical ---
Discharge Inst-Surgical Depart Medication/Instructions New, Converted or Re-Newed RX: Other (use home meds) Patient Instructions Follow up Appt: Make appointment for 1 week. [phone] Instructions: No strenuous activity. May shower in 24 hours, no tub bath or soaking. Use incentive spirometer at home as directed. No Smoking Skin/Wound Care: May remove bandages in am. You need to leave the Dermabond on incision it will fall off on it's own. Symptoms to Report: Appetite Changes, Extremity Discoloration, Numbness/Tingling, Swelling Increased, Bleeding Excessive, Eyesight Changes, Pain Increased, Urine Color Jackie nge, Constipation(Persistent), Fever over 101 degree F, Pain/Pressure in chest, Urinating Difficulty, Cough Up/Vomit Blood, Heart Beat Irreg/Pounding, Pain/Pressure in jaw, Cramps in feet or legs, Lightheadedness, Pain/Pressure in shoulder, Diarrhea(Persistent), Memory Changes Suddenly, Questions/Concerns, Weight gain consecutive days, Dizziness/Fainting, Nausea/Vomiting, Shortness of Breath, Weight gain over 2 pounds If questions or concerns contact your physician Or seek help at emergency department. Activity Activity as Tolerated: Yes Activity Instructions: Avoid Stress to Incision Driving Instructions: You May Drive Diet Discharge Diet: No Restrictions Diet After 24 Hours: Clear Liquid if Nauseous If Any Problems/Questions/Issu: Contact Your Physician, Go to Emergency Room Skin/Wound Care Infection Signs and Symptoms: Increased Redness, Foul Odor of Wound, Increased Drainage, Skin Itchy or Has a Rash, Increased Swelling, Temperature Above 101 F Bathing Instructions: Shower Stitches/Carlos/Dermabond Dis: JONATHAN Rivera DO Sep 20, 2021 12:05
== END 2021-09-20 12:28 | disposition home or self-care (01) ==
LOC: SDC 07:52
PROVIDERS: ATTEND Surgery
DX: C43.9 Malignant melanoma of skin, unspecified (principal); I87.2 Venous insufficiency (chronic) (peripheral); E66.9 Obesity, unspecified; Z68.30 Body mass index [BMI] 30.0-30.9, adult; Z87.891 Personal history of nicotine dependence; Z86.718 Personal history of other venous thrombosis and embolism; Z88.0 Allergy status to penicillin; Z88.5 Allergy status to narcotic agent
CPT/HCPCS: 36561; 76000; 87081; C1788

== ENCOUNTER → 2021-09-24 | Outpatient (CLI) | payer OTHER | LOC: WOUNDCARE 13:37 | PROVIDERS: ATTEND Family Medicine | DX: T81.31XA Disruption of external operation (surgical) wound, not elsewhere classified, initial encounter (principal); C43.61 Malignant melanoma of right upper limb, including shoulder; T86.821 Skin graft (allograft) (autograft) failure | CPT/HCPCS: 11042; G0463 ==

== ENCOUNTER → 2021-10-01 | Outpatient (CLI) | payer OTHER | LOC: WOUNDCARE 13:37 | PROVIDERS: ATTEND Family Medicine | DX: T81.31XA Disruption of external operation (surgical) wound, not elsewhere classified, initial encounter (principal); C43.61 Malignant melanoma of right upper limb, including shoulder; T86.821 Skin graft (allograft) (autograft) failure | CPT/HCPCS: 11042; A6212; G0463 ==

== ENCOUNTER → 2021-10-08 | Outpatient (CLI) | payer OTHER | LOC: WOUNDCARE 13:51 | PROVIDERS: ATTEND Family Medicine | DX: T81.31XA Disruption of external operation (surgical) wound, not elsewhere classified, initial encounter (principal); C43.61 Malignant melanoma of right upper limb, including shoulder; T86.821 Skin graft (allograft) (autograft) failure | CPT/HCPCS: 99212 ==

== ENCOUNTER → 2021-10-23 | Outpatient (RCR) | payer OTHER ==
[2021-10-03 09:26] LABS: BASOPHILS % (AUTO) 0 % (0-10); EOSINOPHILS # (AUTO) 0.2 10^3/uL (0.0-0.3); EOSINOPHILS % (AUTO) 4 % (0-10); HEMATOCRIT 46 % (40-54); HEMOGLOBIN 15.9 g/dL (13.3-17.7); LYMPHOCYTES # (AUTO) 1.6 10^3/uL (1.0-4.0); LYMPHOCYTES % (AUTO) 29 % (12-44); MEAN CORPUSCULAR HEMOGLOBIN 31 pg (25-34); MEAN CORPUSCULAR HGB CONC 34 g/dL (32-36); MEAN CORPUSCULAR VOLUME 89 fL (80-99); MEAN PLATELET VOLUME 8.4 fL (9.0-12.2); MONOCYTES # (AUTO) 0.5 10^3/uL (0.0-1.0); MONOCYTES % (AUTO) 9 % (0-12); NEUTROPHILS # (AUTO) 3.2 10^3/uL (1.8-7.8); NEUTROPHILS % (AUTO) 57 % (42-75); PLATELET COUNT 202 10^3/uL (130-400); WHITE BLOOD COUNT 5.6 10^3/uL (4.3-11.0)
[2021-10-03 09:49] LABS: ALBUMIN 4.1 GM/DL (3.2-4.5); BILIRUBIN,TOTAL 1.1 MG/DL (0.1-1.0); CREATININE SERUM 1.06 MG/DL (0.60-1.30); POTASSIUM 4.1 MMOL/L (3.6-5.0); TOTAL PROTEIN 6.7 GM/DL (6.4-8.2)
[~2021-10-23] MED LIST changes: +HEParin (CENTRAL IV FLUSH) 500 UNIT/5 ML SYR IV PRN; +NS (IVPB) 250 ML ONE; +NS IV 1000 ML (CANCER CTR) IV SCH; +PEMBROLIZUMAB 200 MG in NS (IVPB) 50 ML IV SCH
[2021-10-23 09:13] LABS: BASOPHILS % (AUTO) 1 % (0-10); EOSINOPHILS # (AUTO) 0.2 10^3/uL (0.0-0.3); EOSINOPHILS % (AUTO) 5 % (0-10); HEMATOCRIT 45 % (40-54); HEMOGLOBIN 15.6 g/dL (13.3-17.7); LYMPHOCYTES # (AUTO) 1.3 10^3/uL (1.0-4.0); LYMPHOCYTES % (AUTO) 30 % (12-44); MEAN CORPUSCULAR HEMOGLOBIN 31 pg (25-34); MEAN CORPUSCULAR HGB CONC 35 g/dL (32-36); MEAN CORPUSCULAR VOLUME 90 fL (80-99); MEAN PLATELET VOLUME 8.4 fL (9.0-12.2); MONOCYTES # (AUTO) 0.3 10^3/uL (0.0-1.0); MONOCYTES % (AUTO) 7 % (0-12); NEUTROPHILS # (AUTO) 2.4 10^3/uL (1.8-7.8); NEUTROPHILS % (AUTO) 57 % (42-75); PLATELET COUNT 259 10^3/uL (130-400); WHITE BLOOD COUNT 4.3 10^3/uL (4.3-11.0)
[2021-10-23 09:56] LABS: BILIRUBIN,TOTAL 1.1 MG/DL (0.1-1.0); CALCIUM 8.8 MG/DL (8.5-10.1); CREATININE SERUM 0.85 MG/DL (0.60-1.30); POTASSIUM 3.9 MMOL/L (3.6-5.0)
== END | disposition home or self-care (01) ==
LOC: ONC 10-03 08:51
PROVIDERS: ATTEND Internal Medicine Hematology & Oncology
DX: Z51.11 Encounter for antineoplastic chemotherapy (principal); Z45.2 Encounter for adjustment and management of vascular access device; C49.9 Malignant neoplasm of connective and soft tissue, unspecified
CPT/HCPCS: 36591; 80053; 84443; 85025; 96413; 99213

== ENCOUNTER 2021-11-13 08:45 | Outpatient (RCR) | payer OTHER ==
[~2021-11-13 08:45] MED LIST changes: +NS (IVPB) 250 ML IV SCH; -NS (IVPB) 250 ML ONE
[2021-11-13 09:10] LABS: BASOPHILS % (AUTO) 1 % (0-10); EOSINOPHILS # (AUTO) 0.1 10^3/uL (0.0-0.3); EOSINOPHILS % (AUTO) 2 % (0-10); HEMATOCRIT 45 % (40-54); HEMOGLOBIN 15.8 g/dL (13.3-17.7); LYMPHOCYTES # (AUTO) 1.4 10^3/uL (1.0-4.0); LYMPHOCYTES % (AUTO) 29 % (12-44); MEAN CORPUSCULAR HEMOGLOBIN 31 pg (25-34); MEAN CORPUSCULAR HGB CONC 35 g/dL (32-36); MEAN CORPUSCULAR VOLUME 89 fL (80-99); MEAN PLATELET VOLUME 8.4 fL (9.0-12.2); MONOCYTES # (AUTO) 0.5 10^3/uL (0.0-1.0); MONOCYTES % (AUTO) 11 % (0-12); NEUTROPHILS # (AUTO) 2.8 10^3/uL (1.8-7.8); NEUTROPHILS % (AUTO) 58 % (42-75); PLATELET COUNT 265 10^3/uL (130-400); WHITE BLOOD COUNT 4.9 10^3/uL (4.3-11.0)
[2021-11-13 09:28] LABS: ALBUMIN 4.1 GM/DL (3.2-4.5); BILIRUBIN,TOTAL 1.1 MG/DL (0.1-1.0); CALCIUM 9.1 MG/DL (8.5-10.1); CREATININE SERUM 0.88 MG/DL (0.60-1.30); POTASSIUM 4.3 MMOL/L (3.6-5.0); TOTAL PROTEIN 6.9 GM/DL (6.4-8.2)
== END 2021-11-22 | disposition home or self-care (01) ==
LOC: ONC 08:45
PROVIDERS: ATTEND Internal Medicine Hematology & Oncology
DX: Z51.11 Encounter for antineoplastic chemotherapy (principal); Z45.2 Encounter for adjustment and management of vascular access device; C43.9 Malignant melanoma of skin, unspecified; E66.9 Obesity, unspecified
CPT/HCPCS: 80053; 85025; 96413; G0463; 36591

== ENCOUNTER 2021-12-04 08:49 | Outpatient (RCR) | payer OTHER ==
[2021-12-04 09:25] LABS: BASOPHILS % (AUTO) 0 % (0-10); EOSINOPHILS # (AUTO) 0.2 10^3/uL (0.0-0.3); EOSINOPHILS % (AUTO) 2 % (0-10); HEMATOCRIT 48 % (40-54); HEMOGLOBIN 16.7 g/dL (13.3-17.7); LYMPHOCYTES # (AUTO) 1.4 10^3/uL (1.0-4.0); LYMPHOCYTES % (AUTO) 17 % (12-44); MEAN CORPUSCULAR HEMOGLOBIN 31 pg (25-34); MEAN CORPUSCULAR HGB CONC 35 g/dL (32-36); MEAN CORPUSCULAR VOLUME 89 fL (80-99); MEAN PLATELET VOLUME 8.4 fL (9.0-12.2); MONOCYTES # (AUTO) 1.2 10^3/uL (0.0-1.0); MONOCYTES % (AUTO) 14 % (0-12); NEUTROPHILS # (AUTO) 5.4 10^3/uL (1.8-7.8); NEUTROPHILS % (AUTO) 66 % (42-75); PLATELET COUNT 208 10^3/uL (130-400); WHITE BLOOD COUNT 8.2 10^3/uL (4.3-11.0)
[2021-12-04 09:47] LABS: BILIRUBIN,TOTAL 2.5 MG/DL (0.1-1.0); CALCIUM 9.2 MG/DL (8.5-10.1); CREATININE SERUM 1.31 MG/DL (0.60-1.30); POTASSIUM 4.1 MMOL/L (3.6-5.0); TOTAL PROTEIN 6.9 GM/DL (6.4-8.2)
== END 2021-12-23 | disposition home or self-care (01) ==
LOC: ONC 08:49
PROVIDERS: ATTEND Internal Medicine Hematology & Oncology
DX: Z51.11 Encounter for antineoplastic chemotherapy (principal); Z45.2 Encounter for adjustment and management of vascular access device; C43.9 Malignant melanoma of skin, unspecified; E66.9 Obesity, unspecified
CPT/HCPCS: 80053; 85025; 96413; G0463; 36591

== ENCOUNTER → 2021-12-16 | Outpatient (CLI) | payer OTHER ==
[~2021-12-16] MED LIST changes: +CATHETER FLUSH 10 ML SYR IV PRN; -HEParin (CENTRAL IV FLUSH) 500 UNIT/5 ML SYR IV PRN; +HOLD METFORMIN - RECEIVED CONTRAST 20 ML VIAL IV SCH; +IOHEXOL 350 MG/ML 100 ML (OMNIPAQUE 350) VIAL IV ONE; -NS (IVPB) 250 ML IV SCH; +NS 100 ML (IVPB) BAG IV ONE; -NS IV 1000 ML (CANCER CTR) IV SCH; -PEMBROLIZUMAB 200 MG in NS (IVPB) 50 ML IV SCH
--- NOTE | 2021-12-16 14:02 | Diagnostic Imaging Report ---
PROCEDURE: CT chest, abdomen, and pelvis with contrast. TECHNIQUE: Multiple contiguous axial images were obtained through the chest, abdomen, and pelvis after the administration of intravenous contrast. Auto Exposure Controls were utilized during the CT exam to meet ALARA standards for radiation dose reduction. INDICATION: History of melanoma, adenopathy in the right axilla. Comparison with 09/03/[address] CHEST: FINDINGS: The lungs are well aerated. No nodules have developed. No mediastinal or hilar adenopathy of pathologic size. IV contrast was used. Aorta and vena cava appear normal. Right axillary lymph node present with fatty hilum and thickened cortical mantle. This has increased in size since the previous exam. This currently measures 2 cm in long axis, previously measuring 1.6 cm. Postsurgical changes are seen in the axilla with scarring. Left axillary lymph nodes appear stable. Soft tissues about the chest appear normal. No bony lesions are seen. IMPRESSION: Enlarged lymph node in the right axilla in the region of previous surgical change. This has increased in size when compared with previous exam. CT ABDOMEN AND PELVIS: FINDINGS: Good opacification of the aorta and abdominal vessels and organs. Vessels appear normal. There is a simple cyst again noted in the right lobe of the liver segment VIII. This is unchanged. Gallbladder is absent. Bile ducts are not dilated. No enhancing masses are seen. The pancreas and spleen are normal. The adrenal glands are not enlarged. Kidneys show symmetrical nephrogram effect. There is a simple cyst off the lower pole of the left kidney. The stomach and small bowel are not distended. The colon shows normal stool and gas pattern. No adenopathy has developed within the abdomen or pelvis. Bilateral inguinal lymph nodes have not changed in appearance. The thoracic and lumbar spine show good alignment. No blastic or lytic bony changes have occurred. IMPRESSION: No changes have developed within the abdomen or pelvis to suggest metastatic disease. Dictated by: Dictated on workstation # [id number]
== END ==
LOC: RAD 08:45
PROVIDERS: ATTEND Internal Medicine Hematology & Oncology
DX: R59.0 Localized enlarged lymph nodes (principal); Z85.820 Personal history of malignant melanoma of skin
CPT/HCPCS: 71260; 74177

== ENCOUNTER → 2022-01-01 | Outpatient (CLI) | payer OTHER ==
[~2022-01-01] MED LIST changes: -CATHETER FLUSH 10 ML SYR IV PRN; -HOLD METFORMIN - RECEIVED CONTRAST 20 ML VIAL IV SCH; -IOHEXOL 350 MG/ML 100 ML (OMNIPAQUE 350) VIAL IV ONE; -NS 100 ML (IVPB) BAG IV ONE
--- NOTE | 2022-01-01 13:41 | Diagnostic Imaging Report ---
INDICATION: Right arm pain and swelling. FINDINGS: The veins of the right upper extremity have good color filling and compressibility. There is phasic flow and a normal response to augmentation. IMPRESSION: Negative venous Doppler of the right upper extremity. Dictated by: Dictated on workstation # [id number]
== END ==
LOC: RAD 13:00
PROVIDERS: ATTEND Internal Medicine Hematology & Oncology
DX: C43.9 Malignant melanoma of skin, unspecified (principal); M79.89 Other specified soft tissue disorders; M79.601 Pain in right arm

== ENCOUNTER → 2022-01-06 | Day surgery (SDC) | payer OTHER ==
[~2022-01-06] VITALS: Ht 185.4 cm; Wt 109.1 kg
[~2022-01-06] MED LIST changes: +LIDOCAINE 1% INJ 30 ML (XYLOCAINE) VIAL INJ ONE
--- NOTE | 2022-01-06 14:37 | Diagnostic Imaging Report ---
INDICATION: Melanoma. Patient has an enlarged right axillary lymph node. Patient presents for ultrasound guided biopsy. DETAILS OF THE PROCEDURE: The patient was brought to the procedure room and placed on the bed in the left side down decubitus position with the right arm above the head. Ultrasound imaging of the right axilla was performed to evaluate for an appropriate entry site. The right axilla was then prepped and draped in the usual sterile fashion. A small amount of 1% lidocaine was utilized for local anesthesia. A total of three passes was made into the largest right axillary lymph node utilizing a 14-gauge Achieve needle. Core biopsies were then obtained. The needle was removed and hemostasis was obtained. The patient tolerated the procedure well and left the Department in stable condition. IMPRESSION: Successful ultrasound-guided core biopsy of the enlarged right axillary lymph node. Pathology results are currently pending. Dictated by: Dictated on workstation # [id number]
== END | disposition home or self-care (01) ==
LOC: RAD 12:14
PROVIDERS: ATTEND Internal Medicine Hematology & Oncology
DX: R59.0 Localized enlarged lymph nodes (principal)
CPT/HCPCS: 76942; 88305; 88341; 88342; 88344

== ENCOUNTER → 2022-01-22 | Outpatient (RCR) | payer OTHER ==
[2022-01-01 09:17] LABS: BASOPHILS % (AUTO) 1 % (0-10); EOSINOPHILS # (AUTO) 0.2 10^3/uL (0.0-0.3); EOSINOPHILS % (AUTO) 4 % (0-10); HEMATOCRIT 45 % (40-54); HEMOGLOBIN 15.5 g/dL (13.3-17.7); LYMPHOCYTES # (AUTO) 1.5 10^3/uL (1.0-4.0); LYMPHOCYTES % (AUTO) 31 % (12-44); MEAN CORPUSCULAR HEMOGLOBIN 31 pg (25-34); MEAN CORPUSCULAR HGB CONC 35 g/dL (32-36); MEAN CORPUSCULAR VOLUME 89 fL (80-99); MEAN PLATELET VOLUME 8.4 fL (9.0-12.2); MONOCYTES # (AUTO) 0.5 10^3/uL (0.0-1.0); MONOCYTES % (AUTO) 11 % (0-12); NEUTROPHILS # (AUTO) 2.5 10^3/uL (1.8-7.8); NEUTROPHILS % (AUTO) 53 % (42-75); PLATELET COUNT 220 10^3/uL (130-400); WHITE BLOOD COUNT 4.7 10^3/uL (4.3-11.0)
[2022-01-01 09:44] LABS: ALBUMIN 4.1 GM/DL (3.2-4.5); CALCIUM 8.8 MG/DL (8.5-10.1); CREATININE SERUM 0.9 MG/DL (0.60-1.30); POTASSIUM 3.9 MMOL/L (3.6-5.0)
[~2022-01-22] MED LIST changes: +HEParin (CENTRAL IV FLUSH) 500 UNIT/5 ML SYR IV PRN; -LIDOCAINE 1% INJ 30 ML (XYLOCAINE) VIAL INJ ONE; +NS (IVPB) 250 ML IV SCH; +NS IV 1000 ML (CANCER CTR) IV SCH; +PEMBROLIZUMAB 200 MG in NS (IVPB) 50 ML IV SCH; +diphenhydrAMINE 25 MG TAB (BENADRYL) PO ONE
[2022-01-22 09:15] LABS: BASOPHILS % (AUTO) 0 % (0-10); EOSINOPHILS # (AUTO) 0.2 10^3/uL (0.0-0.3); EOSINOPHILS % (AUTO) 3 % (0-10); HEMATOCRIT 46 % (40-54); LYMPHOCYTES # (AUTO) 1.3 10^3/uL (1.0-4.0); LYMPHOCYTES % (AUTO) 24 % (12-44); MEAN CORPUSCULAR HEMOGLOBIN 31 pg (25-34); MEAN CORPUSCULAR HGB CONC 35 g/dL (32-36); MEAN CORPUSCULAR VOLUME 88 fL (80-99); MEAN PLATELET VOLUME 8.4 fL (9.0-12.2); MONOCYTES # (AUTO) 0.5 10^3/uL (0.0-1.0); MONOCYTES % (AUTO) 9 % (0-12); NEUTROPHILS # (AUTO) 3.6 10^3/uL (1.8-7.8); NEUTROPHILS % (AUTO) 64 % (42-75); PLATELET COUNT 225 10^3/uL (130-400); WHITE BLOOD COUNT 5.6 10^3/uL (4.3-11.0)
[2022-01-22 09:38] LABS: BILIRUBIN,TOTAL 2.3 MG/DL (0.1-1.0); CALCIUM 8.9 MG/DL (8.5-10.1); CREATININE SERUM 0.86 MG/DL (0.60-1.30); POTASSIUM 3.6 MMOL/L (3.6-5.0); TOTAL PROTEIN 6.9 GM/DL (6.4-8.2)
== END | disposition home or self-care (01) ==
LOC: ONC 12-25 09:00
PROVIDERS: ATTEND Internal Medicine Hematology & Oncology
DX: C43.9 Malignant melanoma of skin, unspecified (principal); E66.9 Obesity, unspecified
CPT/HCPCS: 36591; 80053; 84443; 85025; 96375; 96413; 99213

== ENCOUNTER 2022-02-12 09:05 | Outpatient (RCR) | payer OTHER ==
[~2022-02-12 09:05] MED LIST changes: -diphenhydrAMINE 25 MG TAB (BENADRYL) PO ONE
[2022-02-12 09:55] LABS: BASOPHILS % (AUTO) 1 % (0-10); EOSINOPHILS # (AUTO) 0.2 10^3/uL (0.0-0.3); EOSINOPHILS % (AUTO) 5 % (0-10); HEMATOCRIT 43 % (40-54); HEMOGLOBIN 14.9 g/dL (13.3-17.7); LYMPHOCYTES # (AUTO) 1.4 10^3/uL (1.0-4.0); LYMPHOCYTES % (AUTO) 28 % (12-44); MEAN CORPUSCULAR HEMOGLOBIN 31 pg (25-34); MEAN CORPUSCULAR HGB CONC 35 g/dL (32-36); MEAN CORPUSCULAR VOLUME 89 fL (80-99); MEAN PLATELET VOLUME 8.6 fL (9.0-12.2); MONOCYTES # (AUTO) 0.6 10^3/uL (0.0-1.0); MONOCYTES % (AUTO) 11 % (0-12); NEUTROPHILS # (AUTO) 2.7 10^3/uL (1.8-7.8); NEUTROPHILS % (AUTO) 55 % (42-75); PLATELET COUNT 236 10^3/uL (130-400); WHITE BLOOD COUNT 4.9 10^3/uL (4.3-11.0)
[2022-02-12 10:18] LABS: ALBUMIN 3.9 GM/DL (3.2-4.5); BILIRUBIN,TOTAL 1.3 MG/DL (0.1-1.0); CALCIUM 8.9 MG/DL (8.5-10.1); CREATININE SERUM 0.92 MG/DL (0.60-1.30); POTASSIUM 3.9 MMOL/L (3.6-5.0); TOTAL PROTEIN 6.5 GM/DL (6.4-8.2)
== END 2022-02-22 | disposition home or self-care (01) ==
LOC: ONC 09:05
PROVIDERS: ATTEND Internal Medicine Hematology & Oncology
DX: Z51.11 Encounter for antineoplastic chemotherapy (principal); Z45.2 Encounter for adjustment and management of vascular access device; C43.9 Malignant melanoma of skin, unspecified; E66.9 Obesity, unspecified; Z79.899 Other long term (current) drug therapy
CPT/HCPCS: 80053; 84443; 85025; 96413; G0463; 36591

== ENCOUNTER 2022-03-05 09:17 | Outpatient (RCR) | payer OTHER ==
[2022-03-05 09:38] LABS: BASOPHILS % (AUTO) 1 % (0-10); EOSINOPHILS # (AUTO) 0.2 10^3/uL (0.0-0.3); EOSINOPHILS % (AUTO) 4 % (0-10); HEMATOCRIT 45 % (40-54); LYMPHOCYTES # (AUTO) 1.5 10^3/uL (1.0-4.0); LYMPHOCYTES % (AUTO) 27 % (12-44); MEAN CORPUSCULAR HEMOGLOBIN 31 pg (25-34); MEAN CORPUSCULAR HGB CONC 35 g/dL (32-36); MEAN CORPUSCULAR VOLUME 88 fL (80-99); MEAN PLATELET VOLUME 8.4 fL (9.0-12.2); MONOCYTES # (AUTO) 0.5 10^3/uL (0.0-1.0); MONOCYTES % (AUTO) 8 % (0-12); NEUTROPHILS # (AUTO) 3.5 10^3/uL (1.8-7.8); NEUTROPHILS % (AUTO) 61 % (42-75); PLATELET COUNT 229 10^3/uL (130-400); WHITE BLOOD COUNT 5.8 10^3/uL (4.3-11.0)
[2022-03-05 10:08] LABS: ALBUMIN 4.3 GM/DL (3.2-4.5); BILIRUBIN,TOTAL 3.5 MG/DL (0.1-1.0); CALCIUM 9.2 MG/DL (8.5-10.1); CREATININE SERUM 0.96 MG/DL (0.60-1.30); POTASSIUM 3.7 MMOL/L (3.6-5.0); TOTAL PROTEIN 6.9 GM/DL (6.4-8.2)
== END 2022-03-25 | disposition home or self-care (01) ==
LOC: ONC 09:17
PROVIDERS: ATTEND Internal Medicine Hematology & Oncology
DX: Z45.2 Encounter for adjustment and management of vascular access device (principal); C43.9 Malignant melanoma of skin, unspecified; E66.9 Obesity, unspecified; Z72.0 Tobacco use
CPT/HCPCS: 80053; 85025; G0463; 36591

== ENCOUNTER → 2022-03-13 | Outpatient (CLI) | payer OTHER ==
[~2022-03-13] MED LIST changes: -HEParin (CENTRAL IV FLUSH) 500 UNIT/5 ML SYR IV PRN; +HOLD METFORMIN - RECEIVED CONTRAST 20 ML VIAL IV SCH; +IOHEXOL 350 MG/ML 100 ML (OMNIPAQUE 350) VIAL IV ONE; -NS (IVPB) 250 ML IV SCH; +NS 100 ML (IVPB) BAG IV ONE; -NS IV 1000 ML (CANCER CTR) IV SCH; -PEMBROLIZUMAB 200 MG in NS (IVPB) 50 ML IV SCH
--- NOTE | 2022-03-13 11:59 | Diagnostic Imaging Report ---
PROCEDURE: CT chest, abdomen, and pelvis with contrast. TECHNIQUE: Multiple contiguous axial images were obtained through the chest, abdomen, and pelvis after the administration of intravenous contrast. Auto Exposure Controls were utilized during the CT exam to meet ALARA standards for radiation dose reduction. INDICATION: Melanoma of the right shoulder, followup. COMPARISON: Correlation is made with the prior CT from 11/26/2021. FINDINGS: CT CHEST: The previously noted prominent right axillary lymph node appears stable to perhaps slightly smaller in size now measuring 19 mm x 10 mm compared with 21 mm x 14 mm. Fatty lymph nodes in the left axilla are also seen. There is a left chest wall port with the tip at the SVC/right atrial junction. No mediastinal or hilar lymphadenopathy is detected. No pericardial or pleural fluid is detected. No pulmonary nodules, masses, or infiltrates are detected. IMPRESSION: Stable CT of the chest since 12/16/2021. No thoracic lymphadenopathy is seen. Previously noted biopsied right axillary lymph node does appear to be slightly smaller on today's study. CT ABDOMEN AND PELVIS: Diffuse low attenuation throughout the liver is again noted, consistent with hepatic steatosis. The circumscribed low-attenuation lesion in the right lobe of the liver appears stable and is again suggestive of a cyst. No new liver mass is detected. Gallbladder is surgically absent. There is no biliary ductal dilatation. The pancreas and spleen are unremarkable. No adrenal mass is detected. The nonobstructing calculus in the upper pole of the right kidney is stable. The left kidney contains a cortical low-attenuation lesion in the lower pole which is suggestive of a cyst, stable. The aorta is nonaneurysmal. No central retroperitoneal or mesenteric lymphadenopathy is detected. The bowel loops appear to be of normal caliber. There are some diverticula of the sigmoid colon but no evidence of acute diverticulitis. The bladder and prostate are unremarkable. No pelvic lymphadenopathy is seen. There is no ascites. The bony structures are nonacute. IMPRESSION: Hepatic steatosis with cysts of the liver and kidneys, stable. Nonobstructing calculus of the right kidney is stable as well. No abdominal or pelvic lymphadenopathy or evidence of metastatic disease is detected. Dictated by: Dictated on workstation # [id number]
== END ==
LOC: RAD 10:38
PROVIDERS: ATTEND Internal Medicine Hematology & Oncology
DX: C43.9 Malignant melanoma of skin, unspecified (principal)
CPT/HCPCS: 71260; 74177

== ENCOUNTER 2022-04-16 09:01 | Outpatient (RCR) | payer OTHER ==
[2022-03-26 09:31] LABS: BASOPHILS % (AUTO) 1 % (0-10); EOSINOPHILS # (AUTO) 0.2 10^3/uL (0.0-0.3); EOSINOPHILS % (AUTO) 4 % (0-10); HEMATOCRIT 43 % (40-54); HEMOGLOBIN 15.1 g/dL (13.3-17.7); LYMPHOCYTES # (AUTO) 1.5 10^3/uL (1.0-4.0); LYMPHOCYTES % (AUTO) 28 % (12-44); MEAN CORPUSCULAR HEMOGLOBIN 31 pg (25-34); MEAN CORPUSCULAR HGB CONC 35 g/dL (32-36); MEAN CORPUSCULAR VOLUME 88 fL (80-99); MEAN PLATELET VOLUME 8.5 fL (9.0-12.2); MONOCYTES # (AUTO) 0.5 10^3/uL (0.0-1.0); MONOCYTES % (AUTO) 10 % (0-12); NEUTROPHILS % (AUTO) 57 % (42-75); PLATELET COUNT 222 10^3/uL (130-400); WHITE BLOOD COUNT 5.2 10^3/uL (4.3-11.0)
[2022-03-26 09:40] LABS: ALBUMIN 3.5 GM/DL (3.2-4.5); BILIRUBIN,TOTAL 1.8 MG/DL (0.1-1.0); CREATININE SERUM 0.82 MG/DL (0.60-1.30); POTASSIUM 3.9 MMOL/L (3.6-5.0); TOTAL PROTEIN 6.3 GM/DL (6.4-8.2)
[~2022-04-16 09:01] MED LIST changes: +HEParin (CENTRAL IV FLUSH) 500 UNIT/5 ML SYR IV PRN; -HOLD METFORMIN - RECEIVED CONTRAST 20 ML VIAL IV SCH; -IOHEXOL 350 MG/ML 100 ML (OMNIPAQUE 350) VIAL IV ONE; +NS (IVPB) 250 ML IV SCH; -NS 100 ML (IVPB) BAG IV ONE; +NS IV 1000 ML (CANCER CTR) IV SCH; +PEMBROLIZUMAB 200 MG in NS (IVPB) 50 ML IV SCH
[2022-04-16 09:22] LABS: BASOPHILS % (AUTO) 1 % (0-10); EOSINOPHILS # (AUTO) 0.1 10^3/uL (0.0-0.3); EOSINOPHILS % (AUTO) 2 % (0-10); HEMATOCRIT 45 % (40-54); HEMOGLOBIN 15.9 g/dL (13.3-17.7); LYMPHOCYTES # (AUTO) 1.5 10^3/uL (1.0-4.0); LYMPHOCYTES % (AUTO) 23 % (12-44); MEAN CORPUSCULAR HEMOGLOBIN 31 pg (25-34); MEAN CORPUSCULAR HGB CONC 36 g/dL (32-36); MEAN CORPUSCULAR VOLUME 88 fL (80-99); MEAN PLATELET VOLUME 8.2 fL (9.0-12.2); MONOCYTES # (AUTO) 0.5 10^3/uL (0.0-1.0); MONOCYTES % (AUTO) 7 % (0-12); NEUTROPHILS # (AUTO) 4.3 10^3/uL (1.8-7.8); NEUTROPHILS % (AUTO) 67 % (42-75); PLATELET COUNT 243 10^3/uL (130-400); WHITE BLOOD COUNT 6.4 10^3/uL (4.3-11.0)
[2022-04-16 09:42] LABS: ALBUMIN 4.2 GM/DL (3.2-4.5); BILIRUBIN,TOTAL 1.7 MG/DL (0.1-1.0); CALCIUM 9.2 MG/DL (8.5-10.1); CREATININE SERUM 0.93 MG/DL (0.60-1.30); POTASSIUM 3.8 MMOL/L (3.6-5.0)
== END 2022-04-22 | disposition home or self-care (01) ==
LOC: ONC 09:01
PROVIDERS: ATTEND Internal Medicine Hematology & Oncology
DX: Z51.11 Encounter for antineoplastic chemotherapy (principal); Z45.2 Encounter for adjustment and management of vascular access device; C43.9 Malignant melanoma of skin, unspecified; E66.9 Obesity, unspecified; Z72.0 Tobacco use
CPT/HCPCS: 80053; 85025; 96413; G0463; 36591; 84443; 96360; 99213

== ENCOUNTER 2022-05-07 09:06 | Outpatient (RCR) | payer OTHER ==
[~2022-05-07 09:06] MED LIST changes: +MONT-47 PO; -MONT10TA21 PO
[2022-05-07 09:27] LABS: BASOPHILS % (AUTO) 0 % (0-10); EOSINOPHILS # (AUTO) 0.1 10^3/uL (0.0-0.3); EOSINOPHILS % (AUTO) 2 % (0-10); HEMATOCRIT 46 % (40-54); LYMPHOCYTES # (AUTO) 1.3 10^3/uL (1.0-4.0); LYMPHOCYTES % (AUTO) 16 % (12-44); MEAN CORPUSCULAR HEMOGLOBIN 31 pg (25-34); MEAN CORPUSCULAR HGB CONC 35 g/dL (32-36); MEAN CORPUSCULAR VOLUME 89 fL (80-99); MEAN PLATELET VOLUME 8.2 fL (9.0-12.2); MONOCYTES # (AUTO) 0.7 10^3/uL (0.0-1.0); MONOCYTES % (AUTO) 8 % (0-12); NEUTROPHILS # (AUTO) 5.9 10^3/uL (1.8-7.8); NEUTROPHILS % (AUTO) 74 % (42-75); PLATELET COUNT 227 10^3/uL (130-400)
[2022-05-07 09:44] LABS: ALBUMIN 4.1 GM/DL (3.2-4.5); BILIRUBIN,TOTAL 1.7 MG/DL (0.1-1.0); CALCIUM 9.1 MG/DL (8.5-10.1); CREATININE SERUM 1.08 MG/DL (0.60-1.30)
== END 2022-05-23 | disposition home or self-care (01) ==
LOC: ONC 09:06
PROVIDERS: ATTEND Internal Medicine Hematology & Oncology
DX: Z51.11 Encounter for antineoplastic chemotherapy (principal); Z45.2 Encounter for adjustment and management of vascular access device; C43.9 Malignant melanoma of skin, unspecified; E66.9 Obesity, unspecified; Z72.0 Tobacco use
CPT/HCPCS: 36591; 80053; 84443; 85025; 96360; 96413

== ENCOUNTER 2022-06-18 08:57 | Outpatient (RCR) | payer OTHER ==
[2022-05-28 09:54] LABS: BASOPHILS % (AUTO) 1 % (0-10); EOSINOPHILS # (AUTO) 0.2 10^3/uL (0.0-0.3); EOSINOPHILS % (AUTO) 5 % (0-10); HEMATOCRIT 43 % (40-54); HEMOGLOBIN 14.9 g/dL (13.3-17.7); LYMPHOCYTES # (AUTO) 1.4 10^3/uL (1.0-4.0); LYMPHOCYTES % (AUTO) 30 % (12-44); MEAN CORPUSCULAR HEMOGLOBIN 31 pg (25-34); MEAN CORPUSCULAR HGB CONC 35 g/dL (32-36); MEAN CORPUSCULAR VOLUME 89 fL (80-99); MEAN PLATELET VOLUME 8.5 fL (9.0-12.2); MONOCYTES # (AUTO) 0.5 10^3/uL (0.0-1.0); MONOCYTES % (AUTO) 12 % (0-12); NEUTROPHILS # (AUTO) 2.4 10^3/uL (1.8-7.8); NEUTROPHILS % (AUTO) 52 % (42-75); PLATELET COUNT 234 10^3/uL (130-400); WHITE BLOOD COUNT 4.5 10^3/uL (4.3-11.0)
[2022-05-28 10:19] LABS: ALBUMIN 3.9 GM/DL (3.2-4.5); BILIRUBIN,TOTAL 2.1 MG/DL (0.1-1.0); CALCIUM 8.6 MG/DL (8.5-10.1); CREATININE SERUM 0.91 MG/DL (0.60-1.30); POTASSIUM 3.9 MMOL/L (3.6-5.0); TOTAL PROTEIN 6.5 GM/DL (6.4-8.2)
[2022-06-18 09:19] LABS: BASOPHILS % (AUTO) 0 % (0-10); EOSINOPHILS # (AUTO) 0.1 10^3/uL (0.0-0.3); EOSINOPHILS % (AUTO) 2 % (0-10); HEMATOCRIT 45 % (40-54); HEMOGLOBIN 15.8 g/dL (13.3-17.7); LYMPHOCYTES # (AUTO) 1.5 10^3/uL (1.0-4.0); LYMPHOCYTES % (AUTO) 31 % (12-44); MEAN CORPUSCULAR HEMOGLOBIN 31 pg (25-34); MEAN CORPUSCULAR HGB CONC 35 g/dL (32-36); MEAN CORPUSCULAR VOLUME 88 fL (80-99); MEAN PLATELET VOLUME 8.3 fL (9.0-12.2); MONOCYTES # (AUTO) 0.4 10^3/uL (0.0-1.0); MONOCYTES % (AUTO) 9 % (0-12); NEUTROPHILS # (AUTO) 2.8 10^3/uL (1.8-7.8); NEUTROPHILS % (AUTO) 58 % (42-75); PLATELET COUNT 243 10^3/uL (130-400); WHITE BLOOD COUNT 4.9 10^3/uL (4.3-11.0)
[2022-06-18 09:46] LABS: ALBUMIN 4.2 GM/DL (3.2-4.5); BILIRUBIN,TOTAL 1.3 MG/DL (0.1-1.0); CALCIUM 8.7 MG/DL (8.5-10.1); CREATININE SERUM 0.89 MG/DL (0.60-1.30); TOTAL PROTEIN 7.1 GM/DL (6.4-8.2)
== END 2022-06-22 | disposition home or self-care (01) ==
LOC: ONC 08:57
PROVIDERS: ATTEND Internal Medicine Hematology & Oncology
DX: Z51.11 Encounter for antineoplastic chemotherapy (principal); Z45.2 Encounter for adjustment and management of vascular access device; C43.9 Malignant melanoma of skin, unspecified; E66.9 Obesity, unspecified; Z72.0 Tobacco use
CPT/HCPCS: 36591; 80053; 82607; 84402; 84403; 84443; 85025; 96360; 96413

== ENCOUNTER → 2022-06-26 | Outpatient (CLI) | payer OTHER ==
[~2022-06-26] MED LIST changes: -HEParin (CENTRAL IV FLUSH) 500 UNIT/5 ML SYR IV PRN; +HOLD METFORMIN - RECEIVED CONTRAST 20 ML VIAL IV SCH; +IOHEXOL 350 MG/ML 100 ML (OMNIPAQUE 350) VIAL IV ONE; -NS (IVPB) 250 ML IV SCH; +NS 100 ML (IVPB) BAG IV ONE; -NS IV 1000 ML (CANCER CTR) IV SCH; -PEMBROLIZUMAB 200 MG in NS (IVPB) 50 ML IV SCH
--- NOTE | 2022-06-26 10:51 | Diagnostic Imaging Report ---
PROCEDURE: CT chest, abdomen, and pelvis with contrast. TECHNIQUE: Multiple contiguous axial images were obtained through the chest, abdomen, and pelvis after the administration of intravenous contrast. Auto Exposure Controls were utilized during the CT exam to meet ALARA standards for radiation dose reduction. Date: June 26, 2022. Indication: 51-year-old male, history of prostate cancer. Evaluation for metastatic disease. Comparison: CT chest abdomen pelvis March 13, 2022. Findings: There is no identified pulmonary nodule or lung mass. There is very mild dependent atelectasis in the right and left lower lobes. There is no otherwise noted focal airspace consolidation. There is no pneumothorax. There is no pleural effusion. The heart is not enlarged. There is no pericardial effusion. There is no identified abnormally enlarged mediastinal, hilar, or axillary lymph node meeting CT size criteria for adenopathy. There is a low-attenuation lesion in the right lobe of the liver which measures 2.8 cm in size in axial image 96. This has internal attenuation with benign cysts. The main, right, and left portal veins are patent. The gallbladder surgically absent. There is no biliary ductal dilation. The main pancreatic duct is not abnormally dilated. There is an accessory splenule on axial image 123. The spleen is normal in size. There are adrenal glands are unremarkable. There is a 4 mm nonobstructing right renal stone on axial image 132. There is a low-attenuation left renal lesion measuring 2.0 cm in size on axial image 164 compatible with benign cyst. The urinary collecting systems are not distended. There is no identified renal or ureteral stone. Urinary bladder is unremarkable. There is no free intraperitoneal air. There is no drainable fluid collection. There is no free fluid in the abdomen or pelvis. There is no identified abnormally enlarged lymph node in the abdomen or pelvis which meets CT size criteria for adenopathy. There are multilevel degenerative changes of the spine. There is no identified bone lesion concerning for a bone metastasis. Impression: 1. No evidence of metastatic disease at the level of the chest, abdomen, pelvis. Dictated by: Dictated on workstation # [id number]
== END ==
LOC: RAD 08:51
PROVIDERS: ATTEND Internal Medicine Hematology & Oncology
DX: C61 Malignant neoplasm of prostate (principal)
CPT/HCPCS: 71260; 74177

== ENCOUNTER 2022-07-22 10:02 | Outpatient (RCR) | payer OTHER ==
[2022-07-09 10:20] LABS: BASOPHILS % (AUTO) 1 % (0-10); MEAN CORPUSCULAR HGB CONC 35 g/dL (32-36)
[2022-07-09 10:22] LABS: EOSINOPHILS # (AUTO) 0.1 10^3/uL (0.0-0.3); EOSINOPHILS % (AUTO) 2 % (0-10); HEMATOCRIT 43 % (40-54); HEMOGLOBIN 14.9 g/dL (13.3-17.7); LYMPHOCYTES % (AUTO) 20 % (12-44); MEAN CORPUSCULAR HEMOGLOBIN 31 pg (25-34); MEAN CORPUSCULAR VOLUME 88 fL (80-99); MEAN PLATELET VOLUME 9.3 fL (9.0-12.2); MONOCYTES # (AUTO) 0.6 10^3/uL (0.0-1.0); MONOCYTES % (AUTO) 12 % (0-12); NEUTROPHILS # (AUTO) 3.4 10^3/uL (1.8-7.8); NEUTROPHILS % (AUTO) 66 % (42-75); PLATELET COUNT 179 10^3/uL (130-400); WHITE BLOOD COUNT 5.1 10^3/uL (4.3-11.0)
[2022-07-09 10:35] LABS: ALBUMIN 4.2 GM/DL (3.2-4.5); BILIRUBIN,TOTAL 2.7 MG/DL (0.1-1.0); CALCIUM 9.1 MG/DL (8.5-10.1); CREATININE SERUM 1.07 MG/DL (0.60-1.30); POTASSIUM 3.9 MMOL/L (3.6-5.0)
[~2022-07-22 10:02] MED LIST changes: +HEParin (CENTRAL IV FLUSH) 500 UNIT/5 ML SYR IV PRN; -HOLD METFORMIN - RECEIVED CONTRAST 20 ML VIAL IV SCH; -IOHEXOL 350 MG/ML 100 ML (OMNIPAQUE 350) VIAL IV ONE; +NS (IVPB) 250 ML IV SCH; -NS 100 ML (IVPB) BAG IV ONE; +NS IV 1000 ML (CANCER CTR) IV SCH; +PEMBROLIZUMAB 200 MG in NS (IVPB) 50 ML IV SCH
[2022-07-22 11:10] LABS: BASOPHILS % (AUTO) 1 % (0-10); EOSINOPHILS # (AUTO) 0.1 10^3/uL (0.0-0.3); EOSINOPHILS % (AUTO) 1 % (0-10); HEMATOCRIT 45 % (40-54); HEMOGLOBIN 15.8 g/dL (13.3-17.7); LYMPHOCYTES # (AUTO) 1.4 10^3/uL (1.0-4.0); LYMPHOCYTES % (AUTO) 17 % (12-44); MEAN CORPUSCULAR HEMOGLOBIN 30 pg (25-34); MEAN CORPUSCULAR HGB CONC 35 g/dL (32-36); MEAN CORPUSCULAR VOLUME 88 fL (80-99); MEAN PLATELET VOLUME 8.2 fL (9.0-12.2); MONOCYTES # (AUTO) 0.7 10^3/uL (0.0-1.0); MONOCYTES % (AUTO) 9 % (0-12); NEUTROPHILS # (AUTO) 5.8 10^3/uL (1.8-7.8); NEUTROPHILS % (AUTO) 73 % (42-75); PLATELET COUNT 242 10^3/uL (130-400)
[2022-07-22 11:29] LABS: ALBUMIN 4.2 GM/DL (3.2-4.5); BILIRUBIN,TOTAL 1.1 MG/DL (0.1-1.0); CALCIUM 9.3 MG/DL (8.5-10.1); CREATININE SERUM 1.14 MG/DL (0.60-1.30); POTASSIUM 3.8 MMOL/L (3.6-5.0); TOTAL PROTEIN 7.3 GM/DL (6.4-8.2)
== END 2022-07-23 | disposition home or self-care (01) ==
LOC: ONC 10:02
PROVIDERS: ATTEND Internal Medicine Hematology & Oncology
DX: Z51.11 Encounter for antineoplastic chemotherapy (principal); Z45.2 Encounter for adjustment and management of vascular access device; C43.9 Malignant melanoma of skin, unspecified; E66.9 Obesity, unspecified; Z72.0 Tobacco use; Z79.899 Other long term (current) drug therapy
CPT/HCPCS: 36591; 80053; 84443; 85025; 87324; 87449; 96413

== ENCOUNTER 2022-08-13 09:58 | Outpatient (RCR) | payer OTHER ==
[2022-07-30 08:41] LABS: BASOPHILS % (AUTO) 0 % (0-10); EOSINOPHILS % (AUTO) 1 % (0-10); HEMATOCRIT 43 % (40-54); HEMOGLOBIN 14.8 g/dL (13.3-17.7); LYMPHOCYTES # (AUTO) 2.2 10^3/uL (1.0-4.0); LYMPHOCYTES % (AUTO) 26 % (12-44); MEAN CORPUSCULAR HEMOGLOBIN 31 pg (25-34); MEAN CORPUSCULAR HGB CONC 35 g/dL (32-36); MEAN CORPUSCULAR VOLUME 89 fL (80-99); MEAN PLATELET VOLUME 8.3 fL (9.0-12.2); MONOCYTES # (AUTO) 0.5 10^3/uL (0.0-1.0); MONOCYTES % (AUTO) 5 % (0-12); NEUTROPHILS # (AUTO) 5.8 10^3/uL (1.8-7.8); NEUTROPHILS % (AUTO) 67 % (42-75); PLATELET COUNT 256 10^3/uL (130-400); WHITE BLOOD COUNT 8.6 10^3/uL (4.3-11.0)
[2022-07-30 09:03] LABS: ALBUMIN 3.9 GM/DL (3.2-4.5); BILIRUBIN,TOTAL 1.1 MG/DL (0.1-1.0); CALCIUM 8.7 MG/DL (8.5-10.1); CREATININE SERUM 0.94 MG/DL (0.60-1.30); POTASSIUM 3.6 MMOL/L (3.6-5.0); TOTAL PROTEIN 6.5 GM/DL (6.4-8.2)
[~2022-08-13 09:58] MED LIST changes: -HEParin (CENTRAL IV FLUSH) 500 UNIT/5 ML SYR IV PRN; -NS (IVPB) 250 ML IV SCH; -NS IV 1000 ML (CANCER CTR) IV SCH; -PEMBROLIZUMAB 200 MG in NS (IVPB) 50 ML IV SCH
== END 2022-08-22 | disposition home or self-care (01) ==
LOC: ONC 09:58
PROVIDERS: ATTEND Internal Medicine Hematology & Oncology
DX: C43.9 Malignant melanoma of skin, unspecified (principal); E66.9 Obesity, unspecified; Z72.0 Tobacco use
CPT/HCPCS: 36415; 80053; 85025

== ENCOUNTER 2022-09-10 08:42 | Outpatient (RCR) | payer OTHER ==
[2022-09-10 09:07] LABS: BASOPHILS % (AUTO) 1 % (0-10); EOSINOPHILS % (AUTO) 0 % (0-10); HEMATOCRIT 40 % (40-54); HEMOGLOBIN 14.1 g/dL (13.3-17.7); LYMPHOCYTES # (AUTO) 1.1 10^3/uL (1.0-4.0); LYMPHOCYTES % (AUTO) 14 % (12-44); MEAN CORPUSCULAR HEMOGLOBIN 31 pg (25-34); MEAN CORPUSCULAR HGB CONC 35 g/dL (32-36); MEAN CORPUSCULAR VOLUME 89 fL (80-99); MEAN PLATELET VOLUME 8.1 fL (9.0-12.2); MONOCYTES # (AUTO) 0.5 10^3/uL (0.0-1.0); MONOCYTES % (AUTO) 6 % (0-12); NEUTROPHILS # (AUTO) 6.6 10^3/uL (1.8-7.8); NEUTROPHILS % (AUTO) 79 % (42-75); PLATELET COUNT 202 10^3/uL (130-400); WHITE BLOOD COUNT 8.4 10^3/uL (4.3-11.0)
[2022-09-10 09:24] LABS: BILIRUBIN,TOTAL 1.5 MG/DL (0.1-1.0); CALCIUM 9.4 MG/DL (8.5-10.1); CREATININE SERUM 0.83 MG/DL (0.60-1.30); POTASSIUM 4.2 MMOL/L (3.6-5.0); TOTAL PROTEIN 6.9 GM/DL (6.4-8.2)
== END 2022-09-22 | disposition home or self-care (01) ==
LOC: ONC 08:42
PROVIDERS: ATTEND Internal Medicine Hematology & Oncology
DX: Z45.2 Encounter for adjustment and management of vascular access device (principal); C43.9 Malignant melanoma of skin, unspecified; K52.9 Noninfective gastroenteritis and colitis, unspecified; E66.9 Obesity, unspecified; Z72.0 Tobacco use
CPT/HCPCS: 36415; 80053; 84443; 85025; 96523

== ENCOUNTER → 2022-09-18 | Outpatient (CLI) | payer OTHER ==
--- NOTE | 2022-09-18 10:31 | Diagnostic Imaging Report ---
PROCEDURE: US venous upper extremity left. TECHNIQUE: Multiple realtime grayscale images were obtained of left upper extremity in various projections. Additional spectral analysis and color Doppler duplex images were also obtained. INDICATION: Left upper extremity swelling. COMPARISON: None. FINDINGS: Duplex Doppler, weston-scale and color-flow imaging of the left upper extremity veins. The deep veins of the left upper extremity (subclavian, jugular, axillary, and brachial veins) show no evidence of intraluminal thrombosis, with normal compressibility, color flow, and augmentation. The radial and ulnar veins appear patent as well. The superficial veins (basilic and cephalic veins) are patent. Small lymph nodes are seen in the left supraclavicular region and left axilla which demonstrate normal reniform shape and preserved fatty hilum. IMPRESSION: 1. No deep venous thrombosis seen in the left upper extremity veins. 2. Likely reactive lymph nodes in the left supraclavicular region and left axilla. Dictated by: Dictated on workstation # [id number]
== END ==
LOC: RAD 09:07
PROVIDERS: ATTEND Internal Medicine Hematology & Oncology
DX: R22.32 Localized swelling, mass and lump, left upper limb (principal)

== ENCOUNTER 2022-09-23 07:41 | Outpatient (RCR) | payer OTHER | END 2022-10-23 | disposition home or self-care (01) | LOC: ONC 07:41 | PROVIDERS: ATTEND Internal Medicine Hematology & Oncology | DX: C43.9 Malignant melanoma of skin, unspecified (principal); K52.9 Noninfective gastroenteritis and colitis, unspecified; E66.9 Obesity, unspecified; Z72.0 Tobacco use | CPT/HCPCS: G0463 ×2; 99214 ==

== ENCOUNTER → 2022-09-29 | Outpatient (CLI) | payer OTHER ==
[~2022-09-29] MED LIST changes: +CATHETER FLUSH 10 ML SYR IV PRN; +HOLD METFORMIN - RECEIVED CONTRAST 20 ML VIAL IV SCH; +IOHEXOL 350 MG/ML 100 ML (OMNIPAQUE 350) VIAL IV ONE; +NS 100 ML (IVPB) BAG IV ONE
--- NOTE | 2022-09-29 11:15 | Diagnostic Imaging Report ---
INDICATION: Right shoulder melanoma as well as history of prostate carcinoma. TECHNIQUE: Multiple contiguous axial images were obtained through the neck, chest, abdomen, and pelvis after the uneventful bolus administration of intravenous contrast. Auto Exposure Controls were utilized during the CT exam to meet ALARA standards for radiation dose reduction. Correlation is made with prior CT from 06/26/2022. CT NECK: FINDINGS: No supraclavicular, posterior cervical, or jugulodigastric lymphadenopathy is identified. Bilateral parotid and submandibular glands appear to be symmetric bilaterally. No thyroid masses are seen. Posterior nasopharynx, oropharynx, and larynx are unremarkable. The parotid, carotid, and masticators spaces are unremarkable. IMPRESSION: Unremarkable CT soft tissue neck study. CT CHEST: FINDINGS: A left chest wall port has the tip at the SVC right atrial junction. No axillary lymphadenopathy is identified. No mediastinal or hilar lymphadenopathy is detected. There is no pericardial or pleural fluid identified. No pulmonary infiltrates, nodules, or masses are detected. Bony structures are unremarkable. CT ABDOMEN AND PELVIS: Low-attenuation lesion in the right lobe of the liver is stable and consistent with a small cyst. No other liver masses are identified. Gallbladder is surgically absent. There is no biliary ductal dilatation. The pancreas and spleen are unremarkable. No adrenal mass is identified. Nonobstructing calculus in the upper pole of the right kidney is again noted. There are no calculi. There is low-attenuation lesion in the lower pole of the left kidney, stable and most suggestive of a cyst. Aorta is nonaneurysmal. No central retroperitoneal or mesenteric lymphadenopathy is identified. No iliac or inguinal lymphadenopathy is identified. Bowel loops are normal in caliber. There is no obstruction. Occasional diverticula within the sigmoid colon are noted, but no evidence of acute diverticulitis. The bladder and prostate are unremarkable. There is no ascites. Bony structures are without evidence of osteolytic or blastic lesions. IMPRESSION: 1. Unremarkable CT of the chest, abdomen, and pelvis. No thoracic, abdominal, or pelvic lymphadenopathy or metastatic disease is detected. 2. Hepatic and renal cysts. 3. Nonobstructing right renal calculus. Dictated by: Dictated on workstation # [id number]
== END ==
LOC: RAD 08:58
PROVIDERS: ATTEND Internal Medicine Hematology & Oncology
DX: C43.9 Malignant melanoma of skin, unspecified (principal); K76.89 Other specified diseases of liver; N28.1 Cyst of kidney, acquired; N20.0 Calculus of kidney; Z85.46 Personal history of malignant neoplasm of prostate
CPT/HCPCS: 70491; 71260; 74176

== ENCOUNTER 2022-10-29 20:57 | Emergency (ER) | payer OTHER ==
[~2022-10-29] VITALS: Ht 190.5 cm; Wt 108.0 kg
[~2022-10-29 20:57] MED LIST changes: -CATHETER FLUSH 10 ML SYR IV PRN; -HOLD METFORMIN - RECEIVED CONTRAST 20 ML VIAL IV SCH; -IOHEXOL 350 MG/ML 100 ML (OMNIPAQUE 350) VIAL IV ONE; -NS 100 ML (IVPB) BAG IV ONE
--- NOTE | 2022-10-29 22:58 | ED Lower Extremity ---
General Chief Complaint: Lower Extremity Stated Complaint: RIGHT KNEE INJURY Nursing Triage Note: Pt ambulates to triage, states he was working on a car in his garage, he fell, twisted his right knee and felt a pop, and landed on right knee. Pt states his knee cap was moved up and he physically pushed his knee cap down himself. Source: patient Exam Limitations: no limitations History of Present Illness Date Seen by Provider: Oct 29, 2022 Time Seen by Provider: 22:44 Initial Comments 52-year-old male presents to the ER with reports of right knee injury. States t hat he was working on a car and he twisted and fell landing straight down on his knee. States that his patella was displaced superiorly. He states he pushed it back into place. Reports continued pain. Allergies and Home Medications Allergies Coded Allergies: Penicillins (Verified Allergy, Severe, ANAPHYLAXIS, 09/20/21) egg (Verified Allergy, Severe, ANAPHYLAXIS, 09/20/21) oxycodone (Verified Allergy, Unknown, itchy with rash, 09/20/21) Patient Home Medication List Home Medication List Reviewed: Yes Levocetirizine Dihydrochloride (Xyzal) 5 Mg Tablet, 5 MG PO DAILY, (Reported) Entered as Reported by: ROBYN JONES on 09/18/21 1331 Review of Systems Constitutional: see HPI Musculoskeletal: see HPI Past Emszmvn-Xuodbo-Ynbsgv Hx Patient Social History Tobacco Use?: No Substance use?: No Alcohol Use?: Yes Alcohol type: Beer Alcohol Frequency: Daily Pt feels they are or have been: No Immunizations Up To Date Influenza Vaccine Up-to-Date: No; Not Current First/Initial COVID19 Vaccinat: PT REFUSES Second COVID19 Vaccination Eze: PT REFUSES Third COVID19 Vaccination Date: PT REFUSES Seasonal Allergies Seasonal Allergies: Yes (GETS ALLERGY SHOTS) Past Medical History Surgery/Hospitalization HX: APPENDECTOMY Surgeries: Yes (3 LEFT AND 4 RIGHT KNEE SURGERY X7, WISDOM TEETH, JAW SX RSHOULDER MASS SX) Appendectomy, Gallbladder Respiratory: No Cardiac: Yes (WITH KNEE SX ) Deep Vein Thrombosis Neurological: No Reproductive Disorders: No Sexually Transmitted Disease: No HIV/AIDS: No Genitourinary: No Gastrointestinal: No Ulcer, Gall Bladder Disease Musculoskeletal: Yes (left chondyle fracture, BILAT KNEE FX) Arthritis, Fractures Endocrine: No HEENT: Yes (RIGHT EYE SHOT TO DECREASE PRESSURE) Loss of Vision: Denies Hearing Impairment: Denies Cancer: No (RIGHT SHOULDER MASS WITH 7 LYMPH NODE REMOVAL) What Type of Treatment Did You: Surgical Intervention Psychosocial: No Integumentary: No Blood Disorders: Yes (HX DVT) Adverse Reaction/Blood Tranf: No (N/A) Physical Exam Vital Signs Vital Signs - First Documented 10/29/22 22:21 Temp 36.5 Pulse 85 Resp 20 B/P (MAP) 122/73 (89) Pulse Ox 96 O2 Delivery Room Air Capillary Refill : Height, Weight, BMI Height: '" Weight: lbs. oz. kg; 29.00 BMI Method:Stated General Appearance: WD/WN, no apparent distress Neck: supple, normal inspection Cardiovascular: regular rate, rhythm Respiratory: lungs clear, normal breath sounds, no respiratory distress, no accessory muscle use Knees: right knee pain, right knee soft tissue tenderness, right knee swelling Feet: right foot other (Sensation intact, cap refill less than 2 seconds, pulses intact) Neurologic/Psychiatric: alert, normal mood/affect Skin: normal color, warm/dry Progress/Results/Core Measures Results/Orders My Orders Orders - DARIUS SQUIRES APRN Knee, Right, 3 Views (10/29/22 22:44) Ketorolac Injection (Ketorolac Injection (10/29/22 23:00) Crutches (10/29/22 23:21) Knee Immobilizer (10/29/22 23:21) Medications Given in ED Vital Signs/I&O 10/29/22 10/29/22 22:21 23:56 Temp 36.5 Pulse 85 85 Resp 20 20 B/P (MAP) 122/73 (89) 122/73 Pulse Ox 96 96 O2 Delivery Room Air Room Air Blood Pressure Mean: 89 Progress Progress Note : Progress Note Patient seen and evaluated, resting in recliner, no acute distress. Based on exam and symptoms, x-ray of right knee ordered. Ice has been placed by nursing staff. I offered a narcotic pain medicine, patient declined. Toradol ordered instead. 231 x-ray reviewed by me, negative for acute fracture. Will place patient in knee immobilizer and provide crutches. Results discussed with patient. Patient instructed to follow-up with orthopedics. Discharge instructions and return precautions provided. Departure Impression Primary Impression: Knee cap dislocation Qualified Codes: S83.004A - Unspecified dislocation of right patella, initial encounter Disposition: 01 HOME, SELF-CARE Condition: Stable Departure-Patient Inst. Decision time for Depature: 23:19 Referrals: KENAN CONTE MD, WILLIAM J DO (PCP/Family) Primary Care Physician YAA ÁLVAREZ MD Patient Instructions: Dislocated Kneecap Add. Discharge Instructions: Wear the knee immobilizer at all times. Do not bear weight on your leg. Use the crutches to keep weight off of your leg. Call orthopedics tomorrow to schedule a follow-up appointment. You may take 800 mg of ibuprofen every 8 hours with food as needed for pain. You may take 1000 mg of Tylenol every 8 hours as needed for pain. The radiologist will read your x-ray tomorrow, you may call sometime after 9 AM if you want the radiologist read of your x-ray. Return for any new, concerning, or worsening symptoms. All discharge instructions reviewed with patient and/or family. Voiced understanding. DARIUS SQUIRES APRN Oct 29, 2022 22:58
[2022-10-29] MEDS ORDERED: KETOROLAC INJ 30 MG/ML VIAL IM ONE (23:00)
[2022-10-29 23:56] VITALS: BP 122/73
--- NOTE | 2022-10-30 10:38 | Diagnostic Imaging Report ---
EXAMINATION: Right knee radiograph EXAM DATE: 10/30/2022 1:18 AM COMPARISON: None available. HISTORY: Right knee pain TECHNIQUE: 3 views FINDINGS: There is no acute fracture, dislocation, or destructive osseous process. The joint spaces are normal. The soft tissues are normal. IMPRESSION: 1. No acute osseous abnormality. Dictated by: Dictated on workstation # [id number]
== END 2022-10-29 23:56 | disposition home or self-care (01) ==
LOC: EDUNIT# 20:57 → ER 20:59
DX: S83.004A Unspecified dislocation of right patella, initial encounter (principal); Z87.828 Personal history of other (healed) physical injury and trauma; Z28.310 Unvaccinated for COVID-19; W18.30XA Fall on same level, unspecified, initial encounter; X50.1XXA Overexertion from prolonged static or awkward postures, initial encounter; Y92.59 Other trade areas as the place of occurrence of the external cause
CPT/HCPCS: 73562

== ENCOUNTER 2022-11-05 06:05 | Outpatient (CLI) | payer OTHER ==
[~2022-11-05] VITALS: Ht 190.5 cm; Wt 107.5 kg
[2022-11-05] MEDS ORDERED: AMLO-250 PO (09:08)
[2022-11-05] MEDS ORDERED: HYDR-3820 PO (09:08)
[2022-11-05] MEDS ORDERED: MELO15TA39 PO (09:08)
[2022-11-05] MEDS ORDERED: LOSA100T58 PO (09:08)
== END 2022-11-05 09:13 | disposition home or self-care (01) ==
LOC: PREOP 06:05
PROVIDERS: ATTEND Surgery
DX: Z01.818 Encounter for other preprocedural examination (principal)

== ENCOUNTER 2022-11-10 07:16 | Day surgery (SDC) | payer OTHER ==
[~2022-11-10] VITALS: Ht 190.5 cm; Wt 107.5 kg
[~2022-11-10 07:16] MED LIST changes: +AMLO-250 PO; +HYDR-3820 PO; +LOSA100T58 PO; +MELO15TA39 PO
[2022-11-10] MEDS ORDERED: LACTATED RINGERS 1,000 ML 1,000 ML IV STA (07:17)
[2022-11-10 07:30] VITALS: BP 144/93
[2022-11-10] MEDS ORDERED: MIDAZOLAM INJ 2 MG/2 ML VIAL ONE (08:09)
--- NOTE | 2022-11-10 08:24 | Progress Note-Pre Operative ---
Pre-Operative Progress Note Date of Available H&P: Nov 04, 2022 Date H&P Reviewed: Nov 10, 2022 Time H&P Reviewed: 08:21 History & Physical: H&P Reviewed, Patient Examed, No changes noted Pre-Operative Diagnosis: Colitis JONATHAN WAITE DO Nov 10, 2022 08:24
--- NOTE | 2022-11-10 08:48 | Progress Note-Post Operative ---
Post-Operative Progess Note Surgeon (s)/College And Career Counselor (s) Surgeon JONATHAN WAITE DO College And Career Counselor: Anthony Orta, MSIII Pre-Operative Diagnosis Colitis Post-Operative Diagnosis Diverticula int hemorrhoids Procedure & Operative Findings Date of Procedure 11/10/22 Procedure Performed/Findings Colonoscopy PROCEDURE NOTE: After informed consent was obtained, the patient was brought to the endoscopy suite, placed in bed in left lateral decubitus position. He was administered IV sedation by the SENIOR SALES CONSULTANT who then monitored his vitals the entire time, heart rate, blood pressure and pulse ox and the scope was inserted, pushed all the way to about 150 cm and pushed into the cecum, took a picture of appendiceal orifice and noted the ileocecal valve. Then slowly withdrew the scope insufflating to look circumferentially at the covarrubias starting in the cecum, up the ascending colon to the hepatic flexure, then down the transverse colon, splenic flexure, into the descending colon down in the sigmoid and then into the rectal vault and retroflexed the scope. Took picture of the internal hemorrhoids. I also saw some diverticula and took pictures. In addition, I took random photos of the colon; it looked normal no colitis seen. The patient tolerated the procedure. He was recovered in endoscopy suite. Recommended for repeat colonoscopy in 10 years. Anesthesia Type IV sedation by SENIOR SALES CONSULTANT Estimated Blood Loss Estimated blood loss (mL): scant Specimens/Packing Specimens Removed none JONATHAN WAITE DO Nov 10, 2022 08:48
--- NOTE | 2022-11-10 08:49 | Endoscopy Discharge Instruct ---
Endo Procedure/Findings Findings 1.: Diverticulosis 2.: Internal Hemorrhoids Discharge Instructions - Activity: You might feel a little sleepy until tomorrow. This is due to the medicine you received to relax you. Until tomorrow, you should: NOT drive a car, operate machinery or power tools. NOT drink any alcoholic beverages. NOT make any important decisions or sign importortant papers. Do not return to work until tomorrow, unless otherwise instructed. Resume previous activities tomorrow. Diet: Start by taking liquids. If you tolerate liquids, advance to solid food. 1.: Colonscopy in 10 years Notify Physician - If you experience excessive bleeding, unusual abdominal pain, fever, or chest pain, contact your doctor immediately. Follow-Up: Other Follow up in my office in one week JONATHAN WAITE DO Nov 10, 2022 08:49
[2022-11-10 08:50] VITALS: BP 111/72
[2022-11-10 08:55] VITALS: BP 115/74
[2022-11-10 09:00] VITALS: BP 147/91
[2022-11-10 09:43] VITALS: BP 147/91
--- NOTE | 2022-11-10 12:11 | Anesthesia-General Post-Op ---
MAC Patient Condition Mental Status/LOC: Same as Preop Cardiovascular: Satisfactory Nausea/Vomiting: Absent Respiratory: Satisfactory Pain: Controlled Complications: Absent Post Op Complications Complications None Follow Up Care/Instructions Patient Instructions None needed. Anesthesiology Discharge Order Discharge Order Patient is doing well, no complaints, stable vital signs, no apparent adverse anesthesia problems. No complications reported per nursing. STEPHANIE LINN CRNA Nov 10, 2022 12:11
== END 2022-11-10 09:43 | disposition home or self-care (01) ==
LOC: ENDO 07:16
PROVIDERS: ATTEND Surgery
DX: K52.9 Noninfective gastroenteritis and colitis, unspecified (principal); K64.8 Other hemorrhoids; K57.30 Diverticulosis of large intestine without perforation or abscess without bleeding; E66.9 Obesity, unspecified; Z68.29 Body mass index [BMI] 29.0-29.9, adult; Z85.828 Personal history of other malignant neoplasm of skin

== ENCOUNTER 2022-11-26 05:30 | Outpatient (CLI) | payer OTHER ==
[~2022-11-26] VITALS: Ht 190.5 cm; Wt 106.4 kg
== END 2022-11-26 14:24 | disposition home or self-care (01) ==
LOC: PREOP 05:30
PROVIDERS: ATTEND Surgery
DX: Z01.818 Encounter for other preprocedural examination (principal)

== ENCOUNTER 2022-12-03 09:27 | Day surgery (SDC) | payer OTHER ==
[~2022-12-03] VITALS: Ht 190.5 cm; Wt 106.4 kg
[2022-12-03] VITALS (7 sets, daily range): BP systolic 129–184; BP diastolic 74–102
[2022-12-03] MEDS ORDERED: LACTATED RINGERS 1,000 ML 1,000 ML IV PRN (09:45)
[2022-12-03] MEDS ORDERED: CLINDAMYCIN 600 MG/50 ML IVPB 50 ML IV ONE (09:45)
[2022-12-03] MEDS ORDERED: MIDAZOLAM INJ 2 MG/2 ML VIAL ONE (11:49)
--- NOTE | 2022-12-03 11:50 | Progress Note-Pre Operative ---
Pre-Operative Progress Note Date H&P Reviewed: Dec 03, 2022 Time H&P Reviewed: 11:21 History & Physical: H&P Reviewed, Patient Examed, No changes noted Pre-Operative Diagnosis: Venousl Insufficiency, Hx of Melanoma JONATHAN WAITE DO Dec 03, 2022 11:50
[2022-12-03] MEDS ORDERED: LIDOCAINE/EPI 1%-1:200,000 (XYLOCAINE) 30 ML VIAL ONE (11:52)
[2022-12-03] MEDS ORDERED: LIDOCAINE/EPI 1%-1:200,000 (XYLOCAINE) 30 ML VIAL INJ ONE (12:05)
[2022-12-03] MEDS ORDERED: proPOfol INJECTION 200 MG/20 ML VIAL IV ONE (12:19)
--- NOTE | 2022-12-03 12:21 | Progress Note-Post Operative ---
Post-Operative Progess Note Surgeon (s)/Hoistman (s) Surgeon JONATHAN WAITE DO Hoistman: ARASH Jones Pre-Operative Diagnosis Venousl Insufficiency, Hx of Melanoma Post-Operative Diagnosis same Procedure & Operative Findings Date of Procedure 12/03/22 Procedure Performed/Findings PROCEDURE: Removal of port COMPLICATIONS: None. INDICATIONS: The patient is a 52 year-old male who had a port previously placed. Patient is ok to have port removed. The patient was explained risk and benefits of the procedure and wished to proceed with procedure. Consent was signed on the chart. PROCEDURE: The patient was taken to the operating suite and was prepped and draped in sterile fashion. A surgical pause was performed. Local anesthetic was infiltrated to the area around the port. A #15 blade scalpel was used to make an incision right on top of previous incision. Cautery was used to dissect down to the port which was then grasped and then dissected around. The catheter was removed in its entirety. The tract of catheter was closed with 3-0 Vicryl figure of eight suture. The port was then able to be dissected out of the pocket and elevated. The wound was then irrigated with copious amounts of ir- rigation. Hemostasis had been achieved. The subcutaneous tissues were then reapproximated using 3-0 Vicryl. Skin was then closed using 4-0 Vicryl, 3 interrupted subcuticular stitches. The area was then washed and dried and Skin Affix placed over the incision. The patient tolerated the procedure well without complication and was taken to recovery room in stable condition. Anesthesia Type IV sedation by Anesthesia Estimated Blood Loss Estimated blood loss (mL): scant Specimens/Packing Specimens Removed port, not sent to pathology JONATHAN WAITE DO Dec 03, 2022 12:21
[2022-12-03] MEDS ORDERED: ACHD5005 PO ×2 (12:22)
--- NOTE | 2022-12-03 12:23 | Discharge Inst-Surgical ---
Discharge Inst-Surgical Depart Medication/Instructions New, Converted or Re-Newed RX: Transmitted to Pharmacy Patient Instructions Follow up Appt: Make appointment for 1 week. [phone] Instructions: No strenuous activity. May shower in 24 hours, no tub bath or soaking. Use incentive spirometer at home as directed. No Smoking Skin/Wound Care: May remove bandages in am. You need to leave the Dermabond on incision it will fall off on it's own. Symptoms to Report: Appetite Changes, Extremity Discoloration, Numbness/Tingling, Swelling Increased, Bleeding Excessive, Eyesight Changes, Pain Increased, Urine Color C hange, Constipation(Persistent), Fever over 101 degree F, Pain/Pressure in chest, Urinating Difficulty, Cough Up/Vomit Blood, Heart Beat Irreg/Pounding, Pain/Pressure in jaw, Cramps in feet or legs, Lightheadedness, Pain/Pressure in shoulder, Diarrhea(Persistent), Memory Changes Suddenly, Questions/Concerns, Weight gain consecutive days, Dizziness/Fainting, Nausea/Vomiting, Shortness of Breath, Weight gain over 2 pounds If questions or concerns contact your physician Or seek help at emergency department. Activity Activity as Tolerated: Yes Activity Instructions: Avoid Stress to Incision Driving Instructions: No Driving/Refer to Diet Discharge Diet: No Restrictions Diet After 24 Hours: Clear Liquid if Nauseous If Any Problems/Questions/Issu: Contact Your Physician, Go to Emergency Room Skin/Wound Care Infection Signs and Symptoms: Increased Redness, Foul Odor of Wound, Increased Drainage, Skin Itchy or Has a Rash, Increased Swelling, Temperature Above 101 F Bathing Instructions: Shower Stitches/Carlos/Dermabond Dis: JONATHAN Rivera DO Dec 03, 2022 12:23
== END 2022-12-03 13:20 ==
LOC: SDC 09:27
PROVIDERS: ATTEND Surgery
DX: I87.2 Venous insufficiency (chronic) (peripheral) (principal); L98.8 Other specified disorders of the skin and subcutaneous tissue; Z85.820 Personal history of malignant melanoma of skin; Z28.310 Unvaccinated for COVID-19; E66.9 Obesity, unspecified; Z68.29 Body mass index [BMI] 29.0-29.9, adult
CPT/HCPCS: 87081

== ENCOUNTER → 2023-01-23 | Outpatient (CLI) | payer OTHER ==
[~2023-01-23] MED LIST changes: +CATHETER FLUSH 10 ML SYR IV PRN; +HOLD METFORMIN - RECEIVED CONTRAST 20 ML VIAL IV SCH; +IOHEXOL 350 MG/ML 100 ML (OMNIPAQUE 350) VIAL IV ONE; +NS 100 ML (IVPB) BAG IV ONE
--- NOTE | 2023-01-23 09:56 | Diagnostic Imaging Report ---
PROCEDURE: CT chest, abdomen, and pelvis with contrast. TECHNIQUE: Multiple contiguous axial images were obtained through the chest, abdomen, and pelvis after the administration of intravenous contrast. Auto Exposure Controls were utilized during the CT exam to meet ALARA standards for radiation dose reduction. INDICATION: Malignant melanoma of skin. COMPARISON: 09/29/2022 CT CHEST: There is no evidence of pulmonary mass. Mild dependent atelectasis or plethora is noted in the dependent portions of the lungs. There is no significant pleural or pericardial fluid. No pathologically enlarged thoracic adenopathy is identified. There are mildly prominent likely reactive axillary lymph nodes, bilaterally. No focal skeletal lesion is identified. IMPRESSION: 1. No evidence of acute abnormality or metastatic disease in the chest. CT ABDOMEN PELVIS: Dominant cyst is again seen in the central liver. Otherwise, there is no focal hepatic abnormality. Gallbladder is surgically absent. There is no evidence of pancreatic, adrenal gland or splenic lesion. There is an accessory splenule in the splenic hilum. Occasional subcentimeter celiac axis lymph nodes are present without evidence of pathologically enlarged adenopathy. There is no evidence of focal renal mass apart from persistent cyst in the lower pole of left kidney and nonobstructing stone in the upper pole of right kidney. There is no free fluid. No pathologically enlarged mesenteric or central retroperitoneal adenopathy is identified. Unenhanced images of the bladder are unremarkable. There are occasional mildly prominent inguinal lymph nodes which are unchanged. There is also a focal lucency within the inferior endplate of L4. This is somewhat more conspicuous than on the previous study and there is now focal lucency involving the superior endplate of S1 to the left of midline. IMPRESSION: 1. Minimal change when compared to previous study although lytic lesions are now identified within the L4 and S1 vertebral segments. Clinical correlation would be useful. This could be further assessed with MRI for additional characterization. Dictated by: Dictated on workstation # [id number]
== END ==
LOC: RAD 08:23
PROVIDERS: ATTEND Internal Medicine Hematology & Oncology
DX: C43.9 Malignant melanoma of skin, unspecified (principal)
CPT/HCPCS: 71260; 74177